=== PATIENT | male | born 1985 | race Caucasian/White ===

== ENCOUNTER 2017-04-20 17:14 | Emergency (ER) | payer MEDICARE, MEDICAID ==
[2017-04-20 18:03] LABS: APPEARANCE CLEAR (CLEAR); BILIRUBIN NEGATIVE (NEGATIVE); COLOR YELLOW (YELLOW); GLUCOSE NEGATIVE (NEGATIVE); KETONE NEGATIVE (NEGATIVE); LEUKOCYTE ESTERASE NEGATIVE (NEGATIVE); NITRITE NEGATIVE (NEGATIVE); PROTEIN NEGATIVE (NEGATIVE); UROBILINOGEN NORMAL (NORMAL)
== END 2017-04-20 18:54 | disposition home or self-care (01) ==
LOC: D.ER 17:14
PROVIDERS: Emergency Medicine
DX: R30.0 Dysuria (principal)

== ENCOUNTER 2018-08-03 09:26 | Inpatient (IN) | payer MEDICARE ==
[~2018-08-03] VITALS: Ht 182.9 cm; Wt 65.8 kg
[2018-08-03] MEDS ORDERED: AMBIEN10 MG PO (09:33)
[2018-08-03] MEDS ORDERED: PAXIL40 MG PO (09:33)
[2018-08-03] MEDS ORDERED: XANAX2 MG PO (09:33)
[2018-08-03] MEDS ORDERED: NORCO 10-325 TA1 TAB PO (09:33)
[2018-08-03 09:54] LABS: APPEARANCE CLOUDY (CLEAR); COLOR YELLOW (YELLOW); SPECIFIC GRAVITY 1.005 (1.005-1.020)
[2018-08-03 09:55] LABS: BILIRUBIN NEGATIVE (NEGATIVE); GLUCOSE NEGATIVE (NEGATIVE); KETONE LARGE mg/dL (NEGATIVE); NITRITE POSITIVE (NEGATIVE); PROTEIN TRACE mg/dL (NEGATIVE); UROBILINOGEN NORMAL (NORMAL)
[2018-08-03 09:57] LABS: BACTERIA MANY /hpf (NONE SEEN); EPITHELIAL CELLS OCC /hpf (0-5); MUCUS <1+ /lpf (NONE SEEN); WHITE CELLS - URINE 25-50 /hpf (0-5)
[2018-08-03 10:00] LABS: UDS - AMPHET POSITIVE QUAL (NEGATIVE); UDS - BARB NEGATIVE QUAL (NEGATIVE); UDS - BENZO POSITIVE QUAL (NEGATIVE); UDS - COCAINE NEGATIVE QUAL (NEGATIVE); UDS - OPIATE NEGATIVE QUAL (NEGATIVE); UDS - PCP NEGATIVE QUAL (NEGATIVE); UDS - THC POSITIVE QUAL (NEGATIVE)
--- NOTE | 2018-08-03 10:09 | NUR ---
XRAY HERE, RESP. HERE TO DRAW ABG. PORT FLUSHED WELL ON RED SITE, WHITE SITE, SLOW AND SLUGGISH, HEPARIN FLUSH IN PORT.
[2018-08-03 10:21] LABS: BASOPHILS 0.4 % (0-2); EOSINOPHILS 2.3 % (0-7); HEMATOCRIT 43.7 % (42.0-54.0); HEMOGLOBIN 14.4 g/dL (13.5-17.5); IMMATURE GRANULOCYTES 0.3 % (0-5); LYMPHOCYTES 27.4 % (15-50); MCH 28.3 pg (26.0-34.0); MCV 85.9 fL (80.0-100.0); MONOCYTES 9.5 % (2-11); NEUTROPHILS 60.1 % (40-80); PLATELET COUNT 306 10x3/uL (130-400); RBC 5.09 10x6/uL (4.20-6.10); RDW 15.4 % (11.5-14.5); WBC 7.7 10x3/uL (4.8-10.8)
[2018-08-03 10:41] LABS: ALBUMIN 3.8 g/dL (3.4-5.0); ALKALINE PHOSPHATASE 153 U/L (46-116); ALT (SGPT) 148 U/L (10-68); BILIRUBIN - TOTAL 0.67 mg/dL (0.2-1.3); CALC OSMOLALITY 279 mosm/kg (275-300); CALCIUM 9.3 mg/dL (8.5-10.1); CHLORIDE - SERUM 102 mmol/L (98-107); CREATININE - SERUM 0.7 mg/dL (0.6-1.3); GLUCOSE 89 mg/dL (74-106); POTASSIUM - SERUM 4.7 mmol/L (3.5-5.1); PROTEIN - SERUM 9.1 g/dL (6.4-8.2); SODIUM 140 mmol/L (136-145); UREA NITROGEN 17 mg/dL (7-18); eGFR NON AFRICAN AMERICAN > 90 mL/min (90-120)
[2018-08-03 10:50] LABS: CREATINE KINASE 47 UL (21-232); MAGNESIUM - SERUM 2.4 mg/dL (1.8-2.4)
[2018-08-03 10:51] LABS: TROPONIN-I < 0.017 ng/mL (0.000-0.060)
--- NOTE | 2018-08-03 11:05 | NUR ---
NS BOLUS STILL INFUSING ON DEPARTURE, VANCOMYCIN GOING IN . PT JERSON. WELL. ZOSYN FINISHED PRIOR TO VANC BEING STARTED.
[2018-08-03 11:27] LABS: APTT 32.7 SECONDS (22.8-39.4); INR 1.17 (0.85-1.17); PROTIME 14.3 SECONDS (11.6-15.0)
[2018-08-03 11:28] LABS: D-DIMER-QUANTITATIVE 1.12 ug/mLFEU (0.20-0.54)
[2018-08-03 13:29] VITALS: BP 127/82
--- NOTE | 2018-08-03 13:36 | MORECARE ---
CASE MANAGEMENT DISCHARGE SUMMARY PATIENT: TAMARA RAMIREZ UNIT: [id number] ADM DATE: 08/03/18 AGE: 32 : 84 SEX: M ROOM/BED: D.2222 AUTHOR: HILLARY PATTON PHYSICIAN: REFERRING PHYSICIAN: KONG MA MD DATE OF SERVICE: 08/03/18 Discharge Plan Patient Name: TAMARA RAMIREZ Facility: [facility]:[place] : 1985 Planned Disposition: Anticipated Discharge Date: 08/05/18 Discharge Date: Expected LOS: 2 Initial Reviewer: [email or web address] Initial Review Date: 08/03/2018 Generated: 08/03/18 2:36 pm DCPIA - Discharge Planning Initial Assessment Updated by [email or web address]: Paty Rdz on 08/03/18 1:36 pm * Is the patient Alert and Oriented? Yes * How many steps to enter\exit or inside your home? None * PCP Following up with Dr. Mcdowell from retirement stay. * Pharmacy [facility] in [place] * Preadmission Environment Home with Family * ADLs Independent * Equipment Wheelchair * List name and contact numbers for known caregivers / representatives who currently or will assist patient after discharge: Shelby Archibald - mother - [phone] Hermila Moa - sister - [phone] * Verbal permission to speak to the caregivers and representatives has been obtained from the patient. Yes * Community resources currently utilized Home Health * Please name any agencies selected above. [facility] * Additional services required to return to the preadmission environment? Yes * Can the patient safely return to the preadmission environment? No * Has this patient been hospitalized within the prior 30 days at any hospital? Yes Patient Name: TAMARA RAMIREZ Page 52274 at 1336 All edits/amendments must be made on the electronic document DICTATION DATE: 08/03/18 1336 BLOOD TESTER: SOLO 08/03/18 1336 RPT#: [id number] DC DATE: STATUS: ADM IN [place] [address] [place] [address] END OF REPORT
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
[2018-08-03 14:15] VITALS: BP 156/69
[2018-08-03 16:00] VITALS: BP 100/66
--- NOTE | 2018-08-03 19:00 | NUR ---
REPORT RECEIVED AND CARE OF PT ASSUMED. PT LYING IN MID HERNANDEZ'S POSITION WATCHING TV. RIGHT PICC LINE PATENT WITH LR INFUSING AT 125 ML / HR. DRESSING ON BUTTOCKS AND BLE CLEAN AND DRY. WILL MONITOR FOR NEEDS.
[2018-08-03 20:00] VITALS: BP 108/63
--- NOTE | 2018-08-03 20:51 | NUR ---
HS MEDICATIONS GIVEN TO INCLUDE AMBIEN AND XANAX PER REQUEST FOR SLEEP AND ANXIETY. WILL MONITOR CLOSLEY FOR NEEDS.
--- NOTE | 2018-08-03 22:59 | NUR ---
PROVIDED PT WITH ORAL CARE PRODUCTS.
--- NOTE | 2018-08-03 23:59 | NUR ---
GAVE NORCO 10 PO PER PRN ORDER PER PT REQUEST FOR PAIN AT LEVEL 8/10. WILL MONITOR FOR EFFECTIVENESS.
[2018-08-04] VITALS: BP 107/74
[2018-08-04 04:00] VITALS: BP 104/66
[2018-08-04 05:42] LABS: BASOPHILS 0.9 % (0-2); HEMATOCRIT 37.7 % (42.0-54.0); IMMATURE GRANULOCYTES 0.2 % (0-5); LYMPHOCYTES 41.2 % (15-50); MCH 27.4 pg (26.0-34.0); MCHC 31.8 g/dL (31.0-37.0); MCV 86.1 fL (80.0-100.0); MEAN PLATELET VOLUME 10.3 fL (7.4-10.4); NEUTROPHILS 38.7 % (40-80); PLATELET COUNT 264 10x3/uL (130-400); RBC 4.38 10x6/uL (4.20-6.10); RDW 15.2 % (11.5-14.5)
[2018-08-04 05:59] LABS: WBC 5.3 10x3/uL (4.8-10.8)
[2018-08-04 06:05] LABS: ALKALINE PHOSPHATASE 108 U/L (46-116); ALT (SGPT) 116 U/L (10-68); BILIRUBIN - TOTAL 0.45 mg/dL (0.2-1.3); CALC OSMOLALITY 277 mosm/kg (275-300); CALCIUM 7.8 mg/dL (8.5-10.1); CARBON DIOXIDE 28.3 mmol/L (21.0-32.0); CHLORIDE - SERUM 104 mmol/L (98-107); GLUCOSE 81 mg/dL (74-106); SODIUM 139 mmol/L (136-145); UREA NITROGEN 14 mg/dL (7-18)
[2018-08-04 06:07] LABS: ALBUMIN 2.7 g/dL (3.4-5.0); CREATININE - SERUM 0.9 mg/dL (0.6-1.3); POTASSIUM - SERUM 3.9 mmol/L (3.5-5.1); PROTEIN - SERUM 6.8 g/dL (6.4-8.2); eGFR NON AFRICAN AMERICAN > 90 mL/min (90-120)
--- NOTE | 2018-08-04 08:45 | NUR ---
PT RESTING IN BED WATCHING TV. RESP EVEN AND UNLABORED. REPORTS PAIN 9/10 THIS AM. VOICES HAVING "A TOOTHACHE", BUT ALSO VOICES CHRONIC BACK PAIN. PICC LINE INTACT TO RIGHT UPPER ARM WITH LR @ 125ML/HR INFUSING VIA PUMP. SITE WITHOUT REDNESS OR EDEMA. DENIES FURTHER NEEDS AT THIS TIME. CL WITHIN REACH. CONTINUE PLAN OF CARE.
[2018-08-04 09:03] VITALS: BP 100/76
[2018-08-04 12:30] VITALS: BP 110/75
[2018-08-04 15:15] VITALS: BMI 19.6
[2018-08-04 17:15] VITALS: BP 180/66
[2018-08-04 20:00] VITALS: BP 101/60
--- NOTE | 2018-08-04 23:44 | NUR ---
PATIENT SLEEPING. NO NEEDS AT THIS TIME
[2018-08-05 04:00] VITALS: BP 101/67
[2018-08-05 08:10] VITALS: BP 80/43
[2018-08-05 09:44] LABS: BASOPHILS 0.8 % (0-2); EOSINOPHILS 7.4 % (0-7); HEMATOCRIT 39.6 % (42.0-54.0); HEMOGLOBIN 12.4 g/dL (13.5-17.5); IMMATURE GRANULOCYTES 0.2 % (0-5); LYMPHOCYTES 44.2 % (15-50); MCH 27.5 pg (26.0-34.0); MCHC 31.3 g/dL (31.0-37.0); MCV 87.8 fL (80.0-100.0); NEUTROPHILS 37.4 % (40-80); PLATELET COUNT 246 10x3/uL (130-400); RBC 4.51 10x6/uL (4.20-6.10)
[2018-08-05 10:02] LABS: ALBUMIN 2.7 g/dL (3.4-5.0); ALKALINE PHOSPHATASE 104 U/L (46-116); ALT (SGPT) 112 U/L (10-68); CALC OSMOLALITY 277 mosm/kg (275-300); CALCIUM 8.2 mg/dL (8.5-10.1); CARBON DIOXIDE 33.9 mmol/L (21.0-32.0); CHLORIDE - SERUM 105 mmol/L (98-107); GLUCOSE 71 mg/dL (74-106); PROTEIN - SERUM 6.8 g/dL (6.4-8.2); SODIUM 141 mmol/L (136-145); UREA NITROGEN 11 mg/dL (7-18); VANCOMYCIN - TROUGH 11.6 ug/mL (10.0-20.0)
[2018-08-05 10:03] LABS: CREATININE - SERUM 0.6 mg/dL (0.6-1.3); POTASSIUM - SERUM 4.6 mmol/L (3.5-5.1); eGFR NON AFRICAN AMERICAN > 90 mL/min (90-120)
--- NOTE | 2018-08-05 10:11 | NUR ---
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 It measures 6cm x 7cm x 1cm x 3cm from 11-1 oclock. The wound bed is red and no odor is noted. 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 There is a 2cm x 1cm scab on the top of this foot. Left plantar great toe has a ruptured blister with small serous drainage. Currently the pressure injury of right buttock is being treated by daily dressing change using maxorb ag packed loosely on wound bed. Wounds on both feet are being painted with betadine and wrapped with kerlix. Recommend continuing with these treatments.
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
[2018-08-05 12:54] VITALS: BP 95/61
--- NOTE | 2018-08-05 13:47 | NUR ---
16 FR VELAZQUEZ CATHETER PLACED. 45 CC URINE OUTPUT UPON INSERTION. PATIENT TOLERATED WELL. URINE COLLECTED FOR CULTURE.
[2018-08-05 16:16] VITALS: BP 94/57
[2018-08-05 16:30] VITALS: Ht 182.9 cm; Wt 65.8 kg
--- NOTE | 2018-08-05 16:50 | NUR ---
SPOKE WITH KRISTA ASTUDILLO FROM [facility]. DR. TERI HUNTLEY, ORTHOPEDIC SURGEON, WAS PHYSICIAN FOLLOWING UP WITH PATIENT. IV VANCOMYCIN 1.5 GRAM Q12 WAS ORERED 07/30/18 WITH A STOP DATE OF 08/03/18. [facility] [phone].
--- NOTE | 2018-08-05 20:00 | NUR ---
PT A/OX4. SITTING UP ON BED. BREATHING EVEN AND UNLABORED. PT DENIES ANY NEEDS AT THIS TIME. DID ASK WHEN PAIN MEDS WERE DUE. WILL ADDRESS. QUESTIONS ASWERED. WILL FOLLOW POC.
[2018-08-06] VITALS: BP 100/50
[2018-08-06 04:00] VITALS: BP 98/50
[2018-08-06 05:39] LABS: BASOPHILS 0.8 % (0-2); EOSINOPHILS 7.1 % (0-7); HEMATOCRIT 38.6 % (42.0-54.0); HEMOGLOBIN 12.4 g/dL (13.5-17.5); LYMPHOCYTES 48.4 % (15-50); MCH 27.6 pg (26.0-34.0); MCHC 32.1 g/dL (31.0-37.0); MEAN PLATELET VOLUME 10.6 fL (7.4-10.4); MONOCYTES 9.1 % (2-11); NEUTROPHILS 34.6 % (40-80); PLATELET COUNT 292 10x3/uL (130-400); RBC 4.49 10x6/uL (4.20-6.10); RDW 15.2 % (11.5-14.5)
[2018-08-06 06:26] LABS: ALBUMIN 2.6 g/dL (3.4-5.0); ALKALINE PHOSPHATASE 100 U/L (46-116); ALT (SGPT) 109 U/L (10-68); BILIRUBIN - TOTAL 0.16 mg/dL (0.2-1.3); CALC OSMOLALITY 281 mosm/kg (275-300); CALCIUM 8.1 mg/dL (8.5-10.1); CARBON DIOXIDE 29.9 mmol/L (21.0-32.0); CHLORIDE - SERUM 105 mmol/L (98-107); CREATININE - SERUM 0.6 mg/dL (0.6-1.3); GLUCOSE 82 mg/dL (74-106); POTASSIUM - SERUM 4.3 mmol/L (3.5-5.1); PROTEIN - SERUM 6.6 g/dL (6.4-8.2); SODIUM 142 mmol/L (136-145); UREA NITROGEN 12 mg/dL (7-18); eGFR NON AFRICAN AMERICAN > 90 mL/min (90-120)
[2018-08-06 07:10] LABS: HEPATITIS C ANTIBODY >11.0 S/CO RAT (0.0-0.9)
--- NOTE | 2018-08-06 07:35 | NUR ---
PT RESTING IN BED EYES OPEN. PT C/O PAIN, RATED 7/10. C/O ANXIETY ALSO. GAVE NORCO AND XANAX FOR PAIN AND ANXIETY. PT ALERT AND ORIENTED. NO S/S OF ACUTE DISTRESS NOTED. PT PARALYZED BLE. DRESSING TO BILATERAL FEET, CDI. STAGE 3 PRESSURE ULCER TO COCCYX. DRESSING CDI. RIGHT FOOT TOES AMPUTATED. PT USES WC TO AMBULATE. PT ON 1ST OVERLAY MATTRESS. RIGHT PICC, SITE PATENT WITHOUT REDNESS OR SWELLING. LR INFUSING @ 75ML/HR. PT HAS VELAZQUEZ. REFUSED SCDS, RECEIVES LOVENOX. PT DENIES ANYTHING FURTHER AT THIS TIME. CALL LIGHT IN REACH. WILL CONTINUE TO MONITOR.
[2018-08-06 09:17] VITALS: BP 92/54
--- NOTE | 2018-08-06 11:30 | NUR ---
PT HERE FOR OSTEOMYOLITIS FOR THIS VISIT PT DENIES NEEDS AT THIS TIME WILL CONTINUE TO MONITOR
--- NOTE | 2018-08-06 12:15 | NUR ---
PT C/O PAIN, RATED 9/10. GAVE NORCO FOR PAIN. PT DENIES ANYTHING FURTHER AT THIS TIME. CALL LIGHT IN REACH. WILL CONTINUE TO MONITOR.
[2018-08-06 12:44] VITALS: BP 90/52
--- NOTE | 2018-08-06 14:43 | NUR ---
PT C/O FEELING ANXIOUS, GAVE XANAX FOR ANXIETY PER PHYSICIAN'S ORDERS. NO S/S OF ACUTE DISTRESS. PT DENIES ANYTHING FURTHER AT THIS TIME. CALL LIGHT IN REACH. WILL CONTINUE TO MONITOR.
--- NOTE | 2018-08-06 16:01 | NUR ---
PT BP TRENDING DOWN, CALLED DR. FREY. ORDERS ON LR CHANGED TO 125ML/HR FROM 75ML/HR. NO C/O PAIN. NO S/S OF ACUTE DISTRESS NOTED. PT DENIES ANYTHING FURTHER AT THIS TIME. CALL LIGHT IN REACH. WILL CONTINUE TO MONITOR.
[2018-08-06 16:19] VITALS: BP 94/45
--- NOTE | 2018-08-06 17:36 | NUR ---
PT C/O PAIN, 04/22. GAVE NORCO FOR PAIN. PT DENIES ANYTHING FURTHER AT THIS TIME. CALL LIGHT IN REACH. WILL CONTINUE TO MONITOR.
--- NOTE | 2018-08-06 20:00 | NUR ---
ASSESSMENT PER FLOWSHEET. IV PATENT RT PICC LINE OF LR AT 125CC'S/HR SITE CLEAR. VEALZQUEZ TO BEDSIDE DRAINAGE. DRSG TO BILAT. FEET. C/D/I. LEFT FOOT ONE TOE MISSING AND RIGHT FOOT ALL TOES MISSING FROM AMPUTATION. STAGE 4 PRESSURE WOUND TO COCCYX DRSG C/D/I. DUE TO BE CHANGED TOMORROW.
[2018-08-06 20:22] VITALS: BP 94/52
--- NOTE | 2018-08-06 20:30 | NUR ---
REQUESTING SLEEPING PILL AND NERVE PILL. AMBIEN 10 MG PO GIVEN FOR SLEEP AND XANAX 2MG PO GIVEN FOR ANXIETY/NERVES.
--- NOTE | 2018-08-06 21:15 | NUR ---
C/O PAIN (CHRONIC) IN BACK AREA. NORCO TAB ONE PO GIVEN FOR PAIN IN BACK.
--- NOTE | 2018-08-07 | NUR ---
EYES CLOSED RESPIRATIONS WITH EASE AND UNLABORED.
--- NOTE | 2018-08-07 03:00 | NUR ---
TURNS SELF IN BED DENIES NEEDS.
[2018-08-07 04:20] LABS: EOSINOPHILS 6.3 % (0-7); HEMATOCRIT 40.6 % (42.0-54.0); HEMOGLOBIN 13.1 g/dL (13.5-17.5); IMMATURE GRANULOCYTES 0.2 % (0-5); LYMPHOCYTES 45.3 % (15-50); MCH 27.8 pg (26.0-34.0); MCHC 32.3 g/dL (31.0-37.0); MEAN PLATELET VOLUME 10.6 fL (7.4-10.4); MONOCYTES 9.3 % (2-11); NEUTROPHILS 37.9 % (40-80); PLATELET COUNT 312 10x3/uL (130-400); RBC 4.72 10x6/uL (4.20-6.10); RDW 14.8 % (11.5-14.5); WBC 5.8 10x3/uL (4.8-10.8)
[2018-08-07 04:36] LABS: ALBUMIN 2.6 g/dL (3.4-5.0); ALKALINE PHOSPHATASE 100 U/L (46-116); ALT (SGPT) 108 U/L (10-68); BILIRUBIN - TOTAL 0.18 mg/dL (0.2-1.3); CALC OSMOLALITY 280 mosm/kg (275-300); CALCIUM 8.2 mg/dL (8.5-10.1); CARBON DIOXIDE 30.8 mmol/L (21.0-32.0); CHLORIDE - SERUM 104 mmol/L (98-107); CREATININE - SERUM 0.7 mg/dL (0.6-1.3); GLUCOSE 86 mg/dL (74-106); PROTEIN - SERUM 6.7 g/dL (6.4-8.2); SODIUM 141 mmol/L (136-145); UREA NITROGEN 15 mg/dL (7-18); eGFR NON AFRICAN AMERICAN > 90 mL/min (90-120)
--- NOTE | 2018-08-07 06:24 | NUR ---
RESTING QUIETLY RESPIRATIONS WITH EASE AND UNLABORED.
--- NOTE | 2018-08-07 07:35 | NUR ---
PT RESTING IN BED EYES CLOSED. NO C/O PAIN. NO S/S OF DISTRESS NOTED. PICC TO RIGHT UPPER ARM, SITE PATENT AND WITHOUT REDNESS OR SWELLING. VELAZQUEZ PRESENT. DRESSING TO BLE, FEET. STAGE 4 ON COCCYX, DRESSING CHANGES TODAY. LR INFUSING AT 125. PT DENIES ANYTHING FURTHER AT THIS TIME. CALL LIGHT IN REACH. WILL CONTINUE TO MONITOR.
[2018-08-07 08:30] VITALS: BP 97/63
--- NOTE | 2018-08-07 14:51 | NUR ---
NUTRITION F/U PT TOLERATING AHA DIET, BOOST WITH MEALS. 75% INTAKE LUNCH TODAY. WILL CONTINUE TO PROVIDE DIET, BOOST. MONITOR INTAKE. RD FOLLOWING
--- NOTE | 2018-08-07 16:05 | MORECARE ---
CASE MANAGEMENT DISCHARGE SUMMARY PATIENT: TAMARA RAMIREZ UNIT: [id number] ADM DATE: 08/03/18 AGE: 32 : 84 SEX: M ROOM/BED: D.2222 AUTHOR: POOJA,DOC PHYSICIAN: REFERRING PHYSICIAN: KONG MA MD DATE OF SERVICE: 08/07/18 Discharge Plan Patient Name: TAMARA RAMIREZ Facility: [facility]:[place] : 1985 Planned Disposition: Anticipated Discharge Date: 08/05/18 Discharge Date: Expected LOS: 2 Initial Reviewer: [email or web address] Initial Review Date: 08/03/2018 Generated: 08/07/18 5:05 pm Comments DCP- Discharge Planning Updated by [email or web address]: Carol Thaojohn on 08/07/18 3:[address] [facility] denied admission. I spoke with the patient he would like referred to [place]. I called [facility] and spoke with Lachelle and clinical sent. CM will continue to follow and assist with discharge planning/needs. DCP- Discharge Planning Updated by [email or web address]: Carol Miley on 08/05/18 10:[address] [place] for [facility]. CM will continue to follow and assist with discharge planning/needs. DCP- Discharge Planning Updated by [email or web address]: Carol Trent on 08/05/18 10:[address] Met with patient, he is wanting to go to a skilled therapy in [place] prior to going home for wound care and IV antibiotic therapy. States his mother is on Meth and cannot return to her home. I called [facility] and spoke with Jacqueline, she states they do not accept anyone under age 55. I've tried to call clinical coordinator for [facility] (2nd choice) and [facility] (3rd choice) with no answer. Will attempt again after the holidays. CM will continue to follow and assist with discharge planning/needs. DCP- Discharge Planning Updated by [email or web address]: Paty Rdz on 08/03/18 12:[address] Patient Name: TAMARA RAMIREZ Admission Status: ER Accout number: [id number] Admission Date: 08-03-2018 : 1985 Admission Diagnosis: Attending: KONG MA Current LOS: 1 Anticipated DC Date: 08-05-2018 Planned Disposition: Primary Insurance: MEDICARE A & B Discharge Planning Comments: CM met with patient to complete initial dc planning assessment. CM educated patient on the CM role and verbal consent given by patient to complete assessment. Patient reports he was living with his mother and her boyfriend unitl they got into a fight and he kicked them out. Prior to arrival at hospital today he was at a friends house. He reports he was recently in a [facility] home in [place] but was released because he was doing to well with therapy to stay. Not sure if he will qualify for Skilled at time of discharge. He is currently on IV antibiotics due to osteomyelitis. He had [facility] services to assist with IV medication and wound care. Patient reports he is not sure where he is going to go at dc and stated he is needing to apply for public housing. CM discussed residential medicaid and applying to live at the facility but he stated he was not interested in that once CM explained they would take his SSI check and give him a set amount each month. He plans to work on dc place while he is in the hospital. He stated his mom is staying with a friend and he cant stay with her. Patient is wheelchair bound and non ambulatory. He has dressing present to his left foot. CM will continue to follow and will assist as needed with dc plans/needs. Scientific Research Manager: Paty Rdz RN, [facility] DCPIA - Discharge Planning Initial Assessment Updated by [email or web address]: Paty Rdz on 08/03/18 1:36 pm * Is the patient Alert and Oriented? Yes * How many steps to enter\exit or inside your home? None * PCP Following up with Dr. Mcdowell from fpc stay. * Pharmacy [facility] in [place] * Preadmission Environment Home with Family * ADLs Independent * Equipment Wheelchair * List name and contact numbers for known caregivers / representatives who currently or will assist patient after discharge: Shelby Archibald - mother - [phone] Hermila Mao - sister - [phone] * Verbal permission to speak to the caregivers and representatives has been obtained from the patient. Yes * Community resources currently utilized Home Health * Please name any agencies selected above. [facility] * Additional services required to return to the preadmission environment? Yes * Can the patient safely return to the preadmission environment? No * Has this patient been hospitalized within the prior 30 days at any hospital? Yes External Providers External Provider: [facility] Next Contact Date: Service Request Date: Service Type: Resolution: Reviewer: Comments: Last DP export: 08/05/18 10:51 Patient Name: TAMARA RAMIREZ Page 54639 at 1605 All edits/amendments must be made on the electronic document DICTATION DATE: 08/07/18 1605 EMBEDDER: SOLO 08/07/18 1605 RPT#: [id number] DC DATE: STATUS: ADM IN [facility] [address] [place] [address] END OF REPORT
[2018-08-07 16:14] VITALS: BP 96/69
--- NOTE | 2018-08-07 16:15 | MORECARE ---
CASE MANAGEMENT DISCHARGE SUMMARY PATIENT: TAMARA RAMIREZ UNIT: [id number] ADM DATE: 08/03/18 AGE: 32 : 83 SEX: M ROOM/BED: D.2222 AUTHOR: POOJA,DOC PHYSICIAN: REFERRING PHYSICIAN: KONG MA MD DATE OF SERVICE: 08/07/18 Discharge Plan Patient Name: TAMARA RAMIREZ Facility: [facility]:[place] : 1985 Planned Disposition: Anticipated Discharge Date: 08/05/18 Discharge Date: Expected LOS: 2 Initial Reviewer: [email or web address] Initial Review Date: 08/03/2018 Generated: 08/07/18 5:15 pm Comments DCP- Discharge Planning Updated by [email or web address]: Carol Thaojohn on 08/07/18 3:[address] [facility] denied admission. I spoke with the patient he would like referred to [place]. I called [facility] and spoke with Lachelle and clinical sent. CM will continue to follow and assist with discharge planning/needs. DCP- Discharge Planning Updated by [email or web address]: Carol Miley on 08/05/18 10:[address] Clinical [place] for [facility]. CM will continue to follow and assist with discharge planning/needs. DCP- Discharge Planning Updated by [id number]: Carol Trent on 08/05/18 10:[address] Met with patient, he is wanting to go to a skilled therapy in [place] prior to going home for wound care and IV antibiotic therapy. States his mother is on Meth and cannot return to her home. I called [facility] and spoke with Jacqueline, she states they do not accept anyone under age 55. I've tried to call clinical coordinator for [facility] (2nd choice) and [facility] (3rd choice) with no answer. Will attempt again after the holidays. CM will continue to follow and assist with discharge planning/needs. DCP- Discharge Planning Updated by [email or web address]: Paty Rdz on 08/03/18 12:[address] Patient Name: TAMARA RAMIREZ Admission Status: ER Accout number: [id number] Admission Date: 08-03-2018 : 1985 Admission Diagnosis: Attending: KONG MA Current LOS: 1 Anticipated DC Date: 08-05-2018 Planned Disposition: Primary Insurance: MEDICARE A & B Discharge Planning Comments: CM met with patient to complete initial dc planning assessment. CM educated patient on the CM role and verbal consent given by patient to complete assessment. Patient reports he was living with his mother and her boyfriend unitl they got into a fight and he kicked them out. Prior to arrival at hospital today he was at a friends house. He reports he was recently in a senior living home in [place] but was released because he was doing to well with therapy to stay. Not sure if he will qualify for Skilled at time of discharge. He is currently on IV antibiotics due to osteomyelitis. He had [facility] services to assist with IV medication and wound care. Patient reports he is not sure where he is going to go at dc and stated he is needing to apply for public housing. CM discussed senior care medicaid and applying to live at the facility but he stated he was not interested in that once CM explained they would take his SSI check and give him a set amount each month. He plans to work on dc place while he is in the hospital. He stated his mom is staying with a friend and he cant stay with her. Patient is wheelchair bound and non ambulatory. He has dressing present to his left foot. CM will continue to follow and will assist as needed with dc plans/needs. Truck Packer: Paty Rdz RN, [facility] DCPIA - Discharge Planning Initial Assessment Updated by [email or web address]: Paty Rdz on 08/03/18 1:36 pm * Is the patient Alert and Oriented? Yes * How many steps to enter\exit or inside your home? None * PCP Following up with Dr. Mcdowell from half-way stay. * Pharmacy [facility] in [place] * Preadmission Environment Home with Family * ADLs Independent * Equipment Wheelchair * List name and contact numbers for known caregivers / representatives who currently or will assist patient after discharge: Shelby Archibald - mother - [phone] Hermila Mao - sister - [phone] * Verbal permission to speak to the caregivers and representatives has been obtained from the patient. Yes * Community resources currently utilized Home Health * Please name any agencies selected above. [facility] * Additional services required to return to the preadmission environment? Yes * Can the patient safely return to the preadmission environment? No * Has this patient been hospitalized within the prior 30 days at any hospital? Yes External Providers External Provider: [facility] Next Contact Date: Service Request Date: Service Type: Resolution: Reviewer: Comments: Last DP export: 08/05/18 10:51 Patient Name: TAMARA RAMIREZ Page [id number] at 1615 All edits/amendments must be made on the electronic document DICTATION DATE: 08/07/18 1615 MOTION PICTURE OPERATOR: SOLO 08/07/18 1615 RPT#: [id number] DC DATE: STATUS: ADM IN [facility] [address] [place] [address] END OF REPORT
--- NOTE | 2018-08-07 18:06 | NUR ---
PT RESTING IN BED, EYES OPEN. TOOK SHOWER TODAY. NO C/O PAIN. NO S/S OF DISTRESS NOTED. DRESSINGS TO BILATERAL FEET CHANGED. DRESSING TO RIGHT BUTTOCK CHANGED WELL. PT DENIES ANYTHING FURTHER AT THIS TIME. CALL LIGHT IN REACH. WILL CONTINUE TO MONITOR.
--- NOTE | 2018-08-07 20:00 | NUR ---
ASSESSMENT PER FLOWSHEET. DRESSING TO COCCYX C/D/I. DRSG TO BLE X2 C/D/I. IV PATENT PRIETO PICC LINE WITH LR INFUSING AT 125CC'S/HR VELAZQUEZ TO BSD WITH YELLOW URINE.
--- NOTE | 2018-08-07 21:07 | NUR ---
C/O ANXIETY AND PAIN IN BACK. XANAX 2MG PO GIVEN FOR ANXIETY AND NORCO 10 TAB ONE PO GIVEN FOR BACK PAIN. PATIENT LYING IN BED EATING SNACKS. PT TURNS SELF. SR UP X2 CALL LIGHT WITHIN REACH.
[2018-08-07 21:34] VITALS: BP 106/80
--- NOTE | 2018-08-08 | NUR ---
EYES CLOSED RESPIRATIONS WITH EASE AND UNLABORED.
--- NOTE | 2018-08-08 02:12 | NUR ---
AWAKE C/O PAIN IN BACK AND ANXIETY. NORCO 10 TAB ONE PO GIVEN FOR PAIN CONTROL. XANAX 2MG PO GIVEN FOR ANXIETY.
[2018-08-08 05:10] VITALS: BP 94/57
[2018-08-08 05:27] LABS: BASOPHILS 0.6 % (0-2); EOSINOPHILS 6.7 % (0-7); HEMATOCRIT 38.6 % (42.0-54.0); HEMOGLOBIN 12.6 g/dL (13.5-17.5); IMMATURE GRANULOCYTES 0.3 % (0-5); LYMPHOCYTES 37.6 % (15-50); MCH 27.8 pg (26.0-34.0); MCHC 32.6 g/dL (31.0-37.0); MCV 85.2 fL (80.0-100.0); MEAN PLATELET VOLUME 10.4 fL (7.4-10.4); NEUTROPHILS 45.8 % (40-80); PLATELET COUNT 295 10x3/uL (130-400); RBC 4.53 10x6/uL (4.20-6.10); RDW 14.8 % (11.5-14.5); WBC 6.4 10x3/uL (4.8-10.8)
--- NOTE | 2018-08-08 05:40 | NUR ---
EYES CLOSED RESPIRATIONS WITH EASE AND UNLABORED.
[2018-08-08 05:57] LABS: ALBUMIN 2.5 g/dL (3.4-5.0); ALKALINE PHOSPHATASE 98 U/L (46-116); ALT (SGPT) 103 U/L (10-68); BILIRUBIN - TOTAL 0.22 mg/dL (0.2-1.3); CALC OSMOLALITY 280 mosm/kg (275-300); CALCIUM 7.9 mg/dL (8.5-10.1); CARBON DIOXIDE 28.4 mmol/L (21.0-32.0); CHLORIDE - SERUM 102 mmol/L (98-107); CREATININE - SERUM 0.7 mg/dL (0.6-1.3); GLUCOSE 113 mg/dL (74-106); POTASSIUM - SERUM 3.6 mmol/L (3.5-5.1); PROTEIN - SERUM 6.3 g/dL (6.4-8.2); SODIUM 139 mmol/L (136-145); UREA NITROGEN 17 mg/dL (7-18); eGFR NON AFRICAN AMERICAN > 90 mL/min (90-120)
[2018-08-08 08:48] VITALS: BP 100/57
[2018-08-08 12:45] VITALS: BP 106/56
--- NOTE | 2018-08-08 13:25 | MORECARE ---
CASE MANAGEMENT DISCHARGE SUMMARY PATIENT: TAMARA RAMIREZ UNIT: [id number] ADM DATE: 08/03/18 AGE: 32 : 84 SEX: M ROOM/BED: D.2222 AUTHOR: POOJA,DOC PHYSICIAN: REFERRING PHYSICIAN: KONG MA MD DATE OF SERVICE: 08/08/18 Discharge Plan Patient Name: TAMARA RAMIREZ Facility: [facility]:[place] : 1985 Planned Disposition: Anticipated Discharge Date: 08/05/18 Discharge Date: Expected LOS: 2 Initial Reviewer: [email or web address] Initial Review Date: 08/03/2018 Generated: 08/08/18 2:24 pm Comments DCP- Discharge Planning Updated by [email or web address]: Carol Miley on 08/07/18 3:[address] [facility] denied admission. I spoke with the patient he would like referred to [facility]. I called [facility] and spoke with Lachelle and clinical sent. CM will continue to follow and assist with discharge planning/needs. DCP- Discharge Planning Updated by [email or web address]: Carol Miley on 08/05/18 10:[address] Clinical [place] for [facility]. CM will continue to follow and assist with discharge planning/needs. DCP- Discharge Planning Updated by [email or web address]: Carol Trent on 08/05/18 10:[address] Met with patient, he is wanting to go to a skilled therapy in [place] prior to going home for wound care and IV antibiotic therapy. States his mother is on Meth and cannot return to her home. I called [facility] and spoke with Jacqueline, she states they do not accept anyone under age 55. I've tried to call clinical coordinator for [facility] (2nd choice) and [facility] (3rd choice) with no answer. Will attempt again after the holidays. CM will continue to follow and assist with discharge planning/needs. DCP- Discharge Planning Updated by [email or web address]: Paty Rdz on 08/03/18 12:[address] Patient Name: TAMARA RAMIREZ Admission Status: ER Accout number: [id number] Admission Date: 08-03-2018 : 1985 Admission Diagnosis: Attending: KONG MA Current LOS: 1 Anticipated DC Date: 08-05-2018 Planned Disposition: Primary Insurance: MEDICARE A & B Discharge Planning Comments: CM met with patient to complete initial dc planning assessment. CM educated patient on the CM role and verbal consent given by patient to complete assessment. Patient reports he was living with his mother and her boyfriend unitl they got into a fight and he kicked them out. Prior to arrival at hospital today he was at a friends house. He reports he was recently in a jail home in [place] but was released because he was doing to well with therapy to stay. Not sure if he will qualify for Skilled at time of discharge. He is currently on IV antibiotics due to osteomyelitis. He had [facility] services to assist with IV medication and wound care. Patient reports he is not sure where he is going to go at dc and stated he is needing to apply for public housing. CM discussed detention medicaid and applying to live at the facility but he stated he was not interested in that once CM explained they would take his SSI check and give him a set amount each month. He plans to work on dc place while he is in the hospital. He stated his mom is staying with a friend and he cant stay with her. Patient is wheelchair bound and non ambulatory. He has dressing present to his left foot. CM will continue to follow and will assist as needed with dc plans/needs. [employer] Crewmember: Paty Rdz RN, [facility] DCPIA - Discharge Planning Initial Assessment Updated by [email or web address]: Paty Rdz on 08/03/18 1:36 pm * Is the patient Alert and Oriented? Yes * How many steps to enter\exit or inside your home? None * PCP Following up with Dr. Mcdowell from intermediate stay. * Pharmacy [facility] in [place] * Preadmission Environment Home with Family * ADLs Independent * Equipment Wheelchair * List name and contact numbers for known caregivers / representatives who currently or will assist patient after discharge: Shelby Archibald - mother - [phone] Hermila Mao - sister - [phone] * Verbal permission to speak to the caregivers and representatives has been obtained from the patient. Yes * Community resources currently utilized Home Health * Please name any agencies selected above. [facility] * Additional services required to return to the preadmission environment? Yes * Can the patient safely return to the preadmission environment? No * Has this patient been hospitalized within the prior 30 days at any hospital? Yes External Providers External Provider: [facility] Next Contact Date: Service Request Date: Service Type: Resolution: Reviewer: Comments: External Provider: [facility] Next Contact Date: Service Request Date: Service Type: Resolution: Reviewer: Comments: Last DP export: 08/07/18 3:15 Patient Name: TAMARA RAMIREZ Page [id number] at 1325 All edits/amendments must be made on the electronic document DICTATION DATE: 08/08/181323 WELDING MACHINE OPERATOR ELECTRON BEAM: SOLO 08/08/18 1324 RPT#: [id number] DC DATE: STATUS: ADM IN [facility] [address] [place] [address] END OF REPORT
--- NOTE | 2018-08-08 13:56 | MORECARE ---
CASE MANAGEMENT DISCHARGE SUMMARY PATIENT: TAMARA RAMIREZ UNIT: [id number] ADM DATE: 08/03/18 AGE: 32 : [birth year] SEX: M ROOM/BED: D.2222 AUTHOR: POOJA,DOC PHYSICIAN: REFERRING PHYSICIAN: KONG MA MD DATE OF SERVICE: 08/08/18 Discharge Plan Patient Name: TAMARA RAMIREZ Facility: [facility]:[place] : 1985 Planned Disposition: Anticipated Discharge Date: 08/05/18 Discharge Date: Expected LOS: 2 Initial Reviewer: [email or web address] Initial Review Date: 08/03/2018 Generated: 08/08/18 2:56 pm Comments DCP- Discharge Planning Updated by [email or web address]: Carol Trent on 08/08/18 12:[address] Lachelle from [facility] called and has turned down admission. I spoke with Carol at [facility] and he was denied due to positive drug screen. I sent referral to [facility] and spoke to Remy (medical staff services coordinator) and she is going to talk with the senior linux administrator there prior to authorization due to positive drug screen. I called [phone] to reach Rajinder with [facility] with no answer. I called Da with [facility], he declines. Da states they have too many steps and he would not be ambulatory enough for [facility]. I gave the patient a list of homeless shelters as well as [facility]. He states "I do not have a drug problem." CM will continue to follow and assist with discharge planning/needs. DCP- Discharge Planning Updated by [email or web address]: Carol Trent on 08/07/18 3:[address] [facility] have denied admission. I spoke with the patient he would like referred to [facility]. I called [facility] and spoke with Lachelle and clinical sent. CM will continue to follow and assist with discharge planning/needs. DCP- Discharge Planning Updated by [email or web address]: Carol Trent on 08/05/18 10:[address] [place] for [facility] and [facility]. CM will continue to follow and assist with discharge planning/needs. DCP- Discharge Planning Updated by [email or web address]: Carol Trent on 08/05/18 10:[address] Met with patient, he is wanting to go to a skilled therapy in [place] prior to going home for wound care and IV antibiotic therapy. States his mother is on Meth and cannot return to her home. I called [facility] and spoke with Jacqueline, she states they do not accept anyone under age 55. I've tried to call clinical coordinator for [facility] (2nd choice) and [facility] (3rd choice) with no answer. Will attempt again after the holidays. CM will continue to follow and assist with discharge planning/needs. DCP- Discharge Planning Updated by [email or web address]: Paty Rdz on 08/03/18 12:[address] Patient Name: TAMARA RAMIREZ Admission Status: ER Accout number: [id number] Admission Date: 08-03-2018 : 1985 Admission Diagnosis: Attending: KONG MA Current LOS: 1 Anticipated DC Date: 08-05-2018 Planned Disposition: Primary Insurance: MEDICARE A & B Discharge Planning Comments: CM met with patient to complete initial dc planning assessment. CM educated patient on the CM role and verbal consent given by patient to complete assessment. Patient reports he was living with his mother and her boyfriend unitl they got into a fight and he kicked them out. Prior to arrival at hospital today he was at a friends house. He reports he was recently in a custodial home in [place] but was released because he was doing to well with therapy to stay. Not sure if he will qualify for Skilled at time of discharge. He is currently on IV antibiotics due to osteomyelitis. He had [facility] services to assist with IV medication and wound care. Patient reports he is not sure where [place] going to go [place] and stated he is needing to apply for public housing. CM discussed group home medicaid and applying to live at the facility but he stated he was not interested in that once CM explained they would take his SSI check and give him a set amount each month. He plans to work on dc place while he is in the hospital. He stated his mom is staying with a friend and he cant stay with her. Patient is wheelchair bound and non ambulatory. He has dressing present to his left foot. CM will continue to follow and will assist as needed with dc plans/needs. Physically Impaired Teacher: Paty Rdz RN, [facility] DCPIA - Discharge Planning Initial Assessment Updated by [email or web address]: Paty Rdz on 08/03/18 1:36 pm * Is the patient Alert and Oriented? Yes * How many steps to enter\\exit or inside your home? None * PCP Following up with Dr. Mcdowell from fdc stay. * Pharmacy [facility] in [place] * Preadmission Environment Home with Family * ADLs Independent * Equipment Wheelchair * List name and contact numbers for known caregivers / representatives who currently or will assist patient after discharge: Shelby Archibald - mother - [phone] Hermila Mao - sister - [phone] * Verbal permission to speak to the caregivers and representatives has been obtained from the patient. Yes * Community resources currently utilized Home Health * Please name any agencies selected above. [facility] * Additional services required to return to the preadmission environment? Yes * Can the patient safely return to the preadmission environment? No * Has this patient been hospitalized within the prior 30 days at any hospital? Yes Last DP export: 08/08/18 12:24 Patient Name: TAMARA RAMIREZ Page [id number] at 1356 All edits/amendments must be made on the electronic document DICTATION DATE: 08/08/18 1356 LAYOUT OPERATOR: SOLO 08/08/18 1356 RPT#: [id number] DC DATE: STATUS: ADM IN [facility] [address] [place] [address] END OF REPORT
--- NOTE | 2018-08-08 14:57 | CN ---
PATIENT NAME:TAMARA RAMIREZ MEDICAL RECORD: [id number] : 83 LOCATION:D.MS [id number] ADMIT DATE: 08/03/18 ACCOUNT: [id number] CONSULTING PHYSICIAN: KORTNEY NEWELL MD REFERRING PHYSICIAN: KONG MA MD DATE OF CONSULTATION: 08/05/2018 CARDIOLOGY CONSULTATION DIAGNOSES: 1. Peripheral vascular disease. 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 3. Nonhealing ulcer of lower extremity feet. 4. Paraplegic. HISTORY OF PRESENT ILLNESS: This is a young gentleman who presents with multiple medical problems, included in that; however, are nonhealing ulcers on his feet bilaterally. Arterial Doppler suggested peripheral vascular disease. I am now asked for possible revascularization. PHYSICAL EXAMINATION: GENERAL APPEARANCE: Well-nourished, well-developed, appears stated age. Level of distress, comfortable. PSYCHIATRIC: Mental status, alert, normal affect. Orientation, oriented to time, place and person. EYES: Lids and conjunctiva, noninjected. No discharge, no pallor. ENT: Lips, teeth, gums, normal dentition. Oropharynx, no cyanosis, no pallor. NECK: Carotid arteries, bilateral normal upstroke, no bruits, no thrills. JUGULAR VEINS: No jugular venous pressure or distention. CERVICAL LYMPH NODES: Nontender, nonenlarged. THYROID: Not enlarged. Nontender. No nodules. LUNGS: Respiratory effort, unlabored. CHEST: Normal curvature. No thoracic deformity. No chest wall tenderness. Percussion, resonant. Auscultation, clear. No wheezes, no rales, no rhonchi. CARDIOVASCULAR: Precordial exam, nondisplaced. No heaves or pericardial thrills. Rate and rhythm, regular. Heart sounds, normal S1, normal S2. No S3, no gallop, no rub. Systolic murmur, not heard. Diastolic murmur, not heard. EXTREMITIES: No cyanosis, no edema. Peripheral pulses, full and equal in all extremities, except as noted. No bruits appreciated. ABDOMEN: Soft, nondistended. Normal aorta. No bruit. Nontender. No masses. Liver, nontender, no hepatomegaly. Spleen, nontender, no splenomegaly. MUSCULOSKELETAL: No joint tenderness. No joint swelling. No erythema. NEUROLOGICAL: Normal gait, normal strength, normal tone. SKIN: Warm and dry. OVERALL IMPRESSION: Possible peripheral vascular disease of lower extremities. We will get CT angiography of the lower extremities, review this and comment on the possibility of revascularization. TRANSINT:[id number] Voice Confirmation ID: [id number] DOCUMENT ID: [id number] CONSULT REPORT [id number] TAMARA RAMIREZ JEFFREY MD at 1457 CC: [id number] DICTATION DATE: 08/05/1859 TOLL COLLECTOR SUPERVISOR: 08/05/18 1010 ADM IN [facility] [address] [place] [address]
[2018-08-08 16:50] VITALS: BP 106/49; BP 146/69
[2018-08-08 21:11] VITALS: BP 105/58
--- NOTE | 2018-08-09 04:20 | NUR ---
RESTING QUIETLY DRSG TO BOTH FEET C/D/I DRSG TO COCCYX PORESURE SORE C/D/I. PICC LINE IN PLACE WITH LR AT 75CC'S/HR ASSESSMENT PER FLOWSHEET.
[2018-08-09 04:34] VITALS: BP 91/53
[2018-08-09 07:14] LABS: BASOPHILS 0.8 % (0-2); HEMATOCRIT 39.8 % (42.0-54.0); HEMOGLOBIN 12.8 g/dL (13.5-17.5); IMMATURE GRANULOCYTES 0.2 % (0-5); LYMPHOCYTES 40.2 % (15-50); MCH 27.9 pg (26.0-34.0); MCHC 32.2 g/dL (31.0-37.0); MCV 86.9 fL (80.0-100.0); MEAN PLATELET VOLUME 9.9 fL (7.4-10.4); MONOCYTES 9.9 % (2-11); NEUTROPHILS 41.9 % (40-80); PLATELET COUNT 256 10x3/uL (130-400); RBC 4.58 10x6/uL (4.20-6.10); WBC 5.1 10x3/uL (4.8-10.8)
[2018-08-09 07:31] LABS: ALBUMIN 2.7 g/dL (3.4-5.0); ALKALINE PHOSPHATASE 102 U/L (46-116); ALT (SGPT) 95 U/L (10-68); BILIRUBIN - TOTAL 0.26 mg/dL (0.2-1.3); CALCIUM 8.3 mg/dL (8.5-10.1); CARBON DIOXIDE 30.2 mmol/L (21.0-32.0); CHLORIDE - SERUM 105 mmol/L (98-107); CREATININE - SERUM 0.7 mg/dL (0.6-1.3); GLUCOSE 92 mg/dL (74-106); PROTEIN - SERUM 6.8 g/dL (6.4-8.2); SODIUM 139 mmol/L (136-145); eGFR NON AFRICAN AMERICAN > 90 mL/min (90-120)
[2018-08-09 07:32] LABS: CALC OSMOLALITY 277 mosm/kg (275-300); POTASSIUM - SERUM 4.3 mmol/L (3.5-5.1); UREA NITROGEN 12 mg/dL (7-18)
--- NOTE | 2018-08-09 08:15 | NUR ---
PT LAYING IN BED RESTING WITH EYES OPEN. MOOD PLEASANT. PT WATCHING VIDEOS ON HIS PHONE AND LAUGHING. RESPONDS WELL TO VERBAL STIMULI. RESPIRATIONS EVEN AND UNLABORED, NO S/S OF DISTRESS NOTED. DRESSING TO BUTTOCKS, CDI. WILL CHANGE PER ORDER. PT MEDICATED WITH XANAX THIS AM FOR REPORTS OF ANXIETY. DENIES ANY FURTHER NEEDS. BED LOW AND LOCKED, SR UP X2, CL IN EASY. WILL CONTINUE TO MONITOR THROUGHOUT THE DAY.
[2018-08-09 08:51] VITALS: BP 101/65
[2018-08-09] MEDS ORDERED: MIRALAX17 GM PO (11:15)
[2018-08-09] MEDS ORDERED: BACLOFEN10 MG PO (11:15)
[2018-08-09] MEDS ORDERED: Nicoderm [PBKC] TRANSDERM (11:15)
[2018-08-09] MEDS ORDERED: XANAX2 MG PO (11:19)
[2018-08-09] MEDS ORDERED: NORCO 10-325 TA1 TAB PO (11:20)
--- NOTE | 2018-08-09 11:39 | MORECARE ---
CASE MANAGEMENT DISCHARGE SUMMARY PATIENT: TAMARA RAMIREZ UNIT: [id number] ADM DATE: 08/03/18 AGE: 32 : 84 SEX: M ROOM/BED: D.2222 AUTHOR: POOJA,DOC PHYSICIAN: REFERRING PHYSICIAN: KONG MA MD DATE OF SERVICE: 08/09/18 Discharge Plan Patient Name: TAMARA RAMIREZ Facility: [facility]:[place] : 1985 Planned Disposition: Anticipated Discharge Date: 08/05/18 Discharge Date: Expected LOS: 2 Initial Reviewer: [email or web address] Initial Review Date: 08/03/2018 Generated: 08/09/18 12:39 pm Comments DCP- Discharge Planning Updated by [email or web address]: Carol Trent on 08/09/18 10:[address] Received a call from Remy from [facility]. Remy states he is accepted to skilled bed at [facility] and will call with a machine operator picker time. I informed the patient and also told him they are semi private rooms. He is in agreement to discharge to [facility] to a skilled (Medicare) bed. He understands he will have a room mate. IMM explained and signed. CM will continue to follow and assist with discharge planning/needs. DCP- Discharge Planning Updated by [email or web address]: Carol Trent on 08/08/18 12:[address] Lachelle from [facility] called and has turned down admission. I spoke with Carol at [facility] and he was denied due to positive drug screen. I sent referral to [facility] and spoke to Remy (auto club safety program coordinator) and she is going to talk with the pension administrator there prior to authorization due to positive drug screen. I called [phone] to reach Rajinder with [facility] with no answer. I called Da with [facility], he declines. Da states they have too many steps and he would not be ambulatory enough for [facility]. I gave the patient a list of homeless shelters as well as [facility]. He states "I do not have a drug problem." CM will continue to follow and assist with discharge planning/needs. DCP- Discharge Planning Updated by [email or web address]: Carol Trent on 08/07/18 3:[address] [facility] have denied admission. I spoke with the patient he would like referred to [facility]. I called [facility] and spoke with Lachelle and clinical sent. CM will continue to follow and assist with discharge planning/needs. DCP- Discharge Planning Updated by [email or web address]: Carol Trent on 08/05/18 10:[address] Clinical [place] for [facility] and [facility]. CM will continue to follow and assist with discharge planning/needs. DCP- Discharge Planning Updated by [email or web address]: Carol Trent on 08/05/18 10:[address] Met with patient, he is wanting to go to a skilled therapy in [place] prior to going home for wound care and IV antibiotic therapy. States his mother is on Meth and cannot return to her home. I called [facility] and spoke with Jacqueline, she states they do not accept anyone under age 55. I've tried to call clinical coordinator for [facility] (2nd choice) and [facility] (3rd choice) with no answer. Will attempt again after the holidays. CM will continue to follow and assist with discharge planning/needs. DCP- Discharge Planning Updated by [email or web address]: Paty Rdz on 08/03/18 12:[address] Patient Name: TAMARA RAMIREZ Admission Status: ER Accout number: [id number] Admission Date: 08-03-2018 : 1985 Admission Diagnosis: Attending: KONG MA Current LOS: 1 Anticipated DC Date: 08-05-2018 Planned Disposition: Primary Insurance: MEDICARE A & B Discharge Planning Comments: CM met with patient to complete initial dc planning assessment. CM educated patient on the CM role and verbal consent given by patient to complete assessment. Patient reports he was living with his mother and her boyfriend unitl they got into a fight and he kicked them out. Prior to arrival at hospital today he was at a friends house. He reports he was recently in a prison home in [place] but was released because he was doing to well with therapy to stay. Not sure if he will qualify for Skilled at time of discharge. He is currently on IV antibiotics due to osteomyelitis. He had [facility] services to assist with IV medication and wound care. Patient reports he is not sure where he is going to go at dc and stated he is needing to apply for public housing. CM discussed alf medicaid and applying to live at the facility but he stated he was not interested in that once CM explained they would take his SSI check and give him a set amount each month. He plans to work on dc place while he is in the hospital. He stated his mom is staying with a friend and he cant stay with her. Patient is wheelchair bound and non ambulatory. He has dressing present to his left foot. CM will continue to follow and will assist as needed with dc plans/needs. Cattle Examiner: Paty Rdz RN, [facility] DCPIA - Discharge Planning Initial Assessment Updated by [email or web address]: Paty Rdz on 08/03/18 1:36 pm * Is the patient Alert and Oriented? Yes * How many steps to enter\\exit or inside your home? None * PCP Following up with Dr. Mcdowell from [facility]. * Pharmacy [facility] in [place] * Preadmission Environment Home with Family * ADLs Independent * Equipment Wheelchair * List name and contact numbers for known caregivers / representatives who currently or will assist patient after discharge: Shelby Archibald - mother - [phone] Hermila Mao - sister - [phone] * Verbal permission to speak to the caregivers and representatives has been obtained from the patient. Yes * Community resources currently utilized Home Health * Please name any agencies selected above. [facility] * Additional services required to return to the preadmission environment? Yes * Can the patient safely return to the preadmission environment? No * Has this patient been hospitalized within the prior 30 days at any hospital? Yes Coverage Notice Reviewer: [id number] - Carol Trent Notice Issued Date-Time: 08/09/2018 11:31 Notice Type: IM Discharge Notice Notice Delivered To: Patient Relationship to Patient: Self Science Instructor Name: Delivery Method: HAND - Hand Delivered Dinah Days: Prior Verbal Notification: Recipient Understood Notice: Yes Recipient Signature: Yes Med Rec Note Co-signed by Attending: Coverage Notice Comment: IMM explained, signed, copy given, original placed in MR Last DP export: 08/08/18 12:56 Patient Name: TAMARA RAMIREZ Page 64045 at 1139 All edits/amendments must be made on the electronic document DICTATION DATE: 08/09/181137 ENGRAVER STEEL PLATE: SOLO 08/09/18 1138 RPT#: [id number] GA DATE: STATUS: ADM IN [facility] [address] [place] [address] END OF REPORT
--- NOTE | 2018-08-09 12:24 | MORECARE ---
CASE MANAGEMENT DISCHARGE SUMMARY PATIENT: TAMARA RAMIREZ UNIT: [id number] ADM DATE: 08/03/18 AGE: 32 : 84 SEX: M ROOM/BED: D.2222 AUTHOR: POOJA,DOC PHYSICIAN: REFERRING PHYSICIAN: KONG MA MD DATE OF SERVICE: 08/09/18 Discharge Plan Patient Name: TAMARA RAMIREZ Facility: [facility]:[place] : 1985 Planned Disposition: Anticipated Discharge Date: 08/05/18 Discharge Date: Expected LOS: 2 Initial Reviewer: [email or web address] Initial Review Date: 08/03/2018 Generated: 08/09/18 1:24 pm Comments DCP- Discharge Planning Updated by [email or web address]: Carol Miley on 08/09/18 11:[address] Remy returned my call and states she needs a STEFFEN back before they can accept patient. STEFFEN filled out and sent for approval. CM will continue to follow and assist with discharge planning/needs. DCP- Discharge Planning Updated by [id number]: Carol Miley on 08/09/18 10:[address] Received a call from e[facility]my from [facility]. Remy states he is accepted to skilled bed at [facility] and will call with a pickling drum operator time. I informed the patient and also told him they are semi private rooms. He is in agreement to discharge to [facility] to a skilled (Medicare) bed. He understands he will have a room mate. IMM explained and signed. CM will continue to follow and assist with discharge planning/needs. DCP- Discharge Planning Updated by [id number]: Carol Trent on 08/08/18 12:[address] Lachelle from [facility] called and has turned down admission. I spoke with Carol at [facility] and he was denied due to positive drug screen. I sent referral to [facility] and spoke to Remy (media relations coordinator) and she is going to talk with the testing projects administrator there prior to authorization due to positive drug screen. I called [phone] to reach Rajinder with [facility] with no answer. I called Da with [facility], he declines. Da states they have too many steps and he would not be ambulatory enough for [facility]. I gave the patient a list of homeless shelters as well as [facility]. He states "I do not have a drug problem." CM will continue to follow and assist with discharge planning/needs. DCP- Discharge Planning Updated by [email or web address]: Carol Trent on 08/07/18 3:[address] [facility] have denied admission. I spoke with the patient he would like referred to [facility]. I called [facility] and spoke with Lachelle and clinical sent. CM will continue to follow and assist with discharge planning/needs. DCP- Discharge Planning Updated by [email or web address]: Carol Trent on 08/05/18 10:[address] Clinical [place] for [facility]. CM will continue to follow and assist with discharge planning/needs. DCP- Discharge Planning Updated by [email or web address]: Carol Trent on 08/05/18 10:[address] Met with patient, he is wanting to go to a skilled therapy in [place] prior to going home for wound care and IV antibiotic therapy. States his mother is on Meth and cannot return to her home. I called [facility] and spoke with Jacqueline, she states they do not accept anyone under age 55. I've tried to call clinical coordinator for [facility] (2nd choice) and [facility] (3rd choice) with no answer. Will attempt again after the holidays. CM will continue to follow and assist with discharge planning/needs. DCP- Discharge Planning Updated by [email or web address]: Paty Rdz on 08/03/18 12:[address] Patient Name: TAMARA RAMIREZ Admission Status: ER Accout number: [id number] Admission Date: 08-03-2018 : 1985 Admission Diagnosis: Attending: KONG MA Current LOS: 1 Anticipated DC Date: 08-05-2018 Planned Disposition: Primary Insurance: MEDICARE A & B Discharge Planning Comments: CM met with patient to complete initial dc planning assessment. CM educated patient on the CM role and verbal consent given by patient to complete assessment. Patient reports he was living with his mother and her boyfriend unitl they got into a fight and he kicked them out. Prior to arrival at hospital today he was at a friends house. He reports he was recently in a prison home in [place] but was released because he was doing to well with therapy to stay. Not sure if he will qualify for Skilled at time of discharge. He is currently on IV antibiotics due to osteomyelitis. He had [facility] services to assist with IV medication and wound care. Patient reports he is not sure where he is going to go at dc and stated he is needing to apply for public housing. CM discussed detention medicaid and applying to live at the facility but he stated he was not interested in that once CM explained they would take his SSI check and give him a set amount each month. He plans to work on dc place while he is in the hospital. He stated his mom is staying with a friend and he cant stay with her. Patient is wheelchair bound and non ambulatory. He has dressing present to his left foot. CM will continue to follow and will assist as needed with dc plans/needs. Digital Marketing Intern: Paty Rdz RN, [facility] DCPIA - Discharge Planning Initial Assessment Updated by [email or web address]: Paty Rdz on 08/03/18 1:36 pm * Is the patient Alert and Oriented? Yes * How many steps to enter\\exit or inside your home? None * PCP Following up with Dr. Mcdowell from [facility]. * Pharmacy [facility] in [place] * Preadmission Environment Home with Family * ADLs Independent * Equipment Wheelchair * List name and contact numbers for known caregivers / representatives who currently or will assist patient after discharge: Shelby Archibald - mother - [phone] Hermila Mao - sister - [phone] * Verbal permission to speak to the caregivers and representatives has been obtained from the patient. Yes * Community resources currently utilized Home Health * Please name any agencies selected above. [facility] * Additional services required to return to the preadmission environment? Yes * Can the patient safely return to the preadmission environment? No * Has this patient been hospitalized within the prior 30 days at any hospital? Yes External Providers External Provider: STEFANIA [facility] Next Contact Date: Service Request Date: Service Type: Resolution: Reviewer: Comments: Coverage Notice Reviewer: [email or web address] Virgli Trent Notice Issued Date-Time: 08/09/2018 11:31 Notice Type: IM Discharge Notice Notice Delivered To: Patient Relationship to Patient: Self Division Controller Name: Delivery Method: HAND - Hand Delivered Dinah Days: Prior Verbal Notification: Recipient Understood Notice: Yes Recipient Signature: Yes Med Rec Note Co-signed by Attending: Coverage Notice Comment: IMM explained, signed, copy given, original placed in MR Last DP export: 08/09/18 10:39 Patient Name: TAMARA RAMIREZ Page 10066 at 1224 All edits/amendments must be made on the electronic document DICTATION DATE: 08/09/18 122 SPINNING BATH PERSON: SOLO 08/09/18 1224 RPT#: [id number] DC DATE: STATUS: ADM IN [facility] [address] [place] [address] END OF REPORT
--- NOTE | 2018-08-09 12:44 | NUR ---
LYING IN BED,WITHOUT DISTRESS.
--- NOTE | 2018-08-09 15:47 | NUR ---
PT'S DRESSING TO RIGHT BUTTOCKS CHANGED PER ORDER. OLD DRESSING REMOVED, WOUND CLEANED WITH WOUND BRIDGE TENDER. MAXORB CUT OUT AND APPLIED TO BED OF WOUND. DRESSING PLACED OVER THE WOUND AND TAPED WITH SURGICAL TAPE. INITIALED AND DATED PER POLICIES AND PROCEDURES. PT TOLERATED WELL. CL IN EASY REACH.
[2018-08-09 15:59] VITALS: BP 102/58
--- NOTE | 2018-08-09 18:41 | NUR ---
PT LAYING IN BED RESTING WITH EYES CLOSED. PT NOT BOTHERED AT THIS TIME DUE TO HIM FINALLY GETTING SOME REST THIS PM. CL IN EASY REACH.
--- NOTE | 2018-08-09 19:00 | NUR ---
REPORT RECEIVED AND CARE OF PT ASSUMED. PT ROLLING AROUND UNIT IN HIS WHEELCHAIR AT THIS TIME. RIGHT PICC SALINE LOCKED....WILL RE-START LR AT 125 WHEN PT BACK IN HIS ROOM. VELAZQUEZ CATHETER DRAINING TO GRAVITY WITH YELLOW URINE IN COLLECTION BAG. WILL MONITOR FOR NEEDS.
[2018-08-09 20:00] VITALS: BP 101/67
--- NOTE | 2018-08-09 20:42 | NUR ---
HS MEDICATIONS GIVEN TO INCLUDE XANAX , NORCO, AND BACLOFEN PER PRN ORDERS FOR PAIN. WILL MONITOR FOR NEEDS.
--- NOTE | 2018-08-09 21:00 | NUR ---
GAVE ICE WATER AND ICE FOR SODA.
[2018-08-10] VITALS (7 sets, daily range): BP systolic 93–119; BP diastolic 46–78
--- NOTE | 2018-08-10 03:06 | NUR ---
GAVE XANAX 2 MG PO PER REQUEST FOR ANXIETY. WILL CONTINUE TO MONITOR FOR NEEDS.
[2018-08-10 05:56] LABS: BASOPHILS 0.7 % (0-2); EOSINOPHILS 6.7 % (0-7); HEMATOCRIT 38.7 % (42.0-54.0); HEMOGLOBIN 12.2 g/dL (13.5-17.5); IMMATURE GRANULOCYTES 0.1 % (0-5); LYMPHOCYTES 43.4 % (15-50); MCH 27.4 pg (26.0-34.0); MCHC 31.5 g/dL (31.0-37.0); MEAN PLATELET VOLUME 10.7 fL (7.4-10.4); MONOCYTES 8.8 % (2-11); NEUTROPHILS 40.3 % (40-80); PLATELET COUNT 300 10x3/uL (130-400); RBC 4.45 10x6/uL (4.20-6.10)
[2018-08-10 05:57] LABS: WBC 7.1 10x3/uL (4.8-10.8)
[2018-08-10 06:31] LABS: ALBUMIN 2.6 g/dL (3.4-5.0); ALKALINE PHOSPHATASE 104 U/L (46-116); ALT (SGPT) 85 U/L (10-68); BILIRUBIN - TOTAL 0.17 mg/dL (0.2-1.3); CALC OSMOLALITY 274 mosm/kg (275-300); CALCIUM 8.2 mg/dL (8.5-10.1); CARBON DIOXIDE 28.1 mmol/L (21.0-32.0); CHLORIDE - SERUM 103 mmol/L (98-107); CREATININE - SERUM 0.7 mg/dL (0.6-1.3); GLUCOSE 85 mg/dL (74-106); POTASSIUM - SERUM 4.1 mmol/L (3.5-5.1); PROTEIN - SERUM 6.5 g/dL (6.4-8.2); SODIUM 138 mmol/L (136-145); UREA NITROGEN 13 mg/dL (7-18); eGFR NON AFRICAN AMERICAN > 90 mL/min (90-120)
--- NOTE | 2018-08-10 08:00 | NUR ---
PATIENT UP IN IN HALLWAY MOVING AROUND. NO PROBLEMS AT THIS TIME.
--- NOTE | 2018-08-10 09:48 | NUR ---
PT WHEELING AROUND THE UNIT THIS AM TALKING TO STAFF AND HAVING CONVERSATIONS. MOOD PLEASANT, PT IN HIGH SPIRITS TODAY. PT MEDICATED WITH NORCO PRN PER EMAR FOR C/O PAIN IN BACK 8 OUT OF 10 ON A NUMERICAL SCALE. ROUTINE MEDS GIVEN, DENIES FURTHER NEEDS AT THIS TIME. RESPIRATIONS EVEN AND UNLABORED, NO S/S OF DISTRESS NOTED. LCTA. BOWEL SOUNDS PRESENT X4 QUAD. BILAT FOOT DRESSINGS CDI. DRESSING TO RIGHT BUTTOCKS CDI, TO BE CHANGED LATER TODAY. WILL CONTINUE TO MONITOR.
--- NOTE | 2018-08-10 16:55 | NUR ---
DRESSING ON BILAT FEET CHANGED PER ORDER, WOUNDS ON FEET CLEANSED WITH WOUND MACARONI MAKER AND PAINTED WITH BETADINE, THEN COVERED WITH A 4X4 AND WRAPPED WITH KERLEX. DRESSING TO RIGHT BUTTOCKS CHANGED PER ORDER. WOUND CLEANSED WITH WOUND MACARONI MAKER. MAXORB AG PACKED ON THE BED OF WOUND AND A 4X4 PLACED OVER WOUND AND TAPED WITH SURGICAL TAPE. DRESSING INITIALED AND DATED. PT TOLERATED WELL. DENIES FURTHER NEEDS AT THIS TIME.
--- NOTE | 2018-08-10 19:00 | NUR ---
REPORT RECEIVED AND CARE OF PT ASSUMED. PT LYING IN SUPINE POSITION WITH EYES CLOSED. RIGHT PICC LINE SALINE LOCKED. WILL MONITOR FOR NEEDS.
--- NOTE | 2018-08-10 21:09 | NUR ---
HS MEDICATIONS GIVEN TO INCLUDE BACLOFEN AND NORCO PER REQUEST PER PRN ORDERS. PT DECLINES TO HAVE IV FLUIDS RE-STARTED...PO INTAKE GOOD AND ENCOURAGED TO KEEP HYDRATED. WILL CONTINUE TO MONITOR FOR NEEDS.
--- NOTE | 2018-08-10 23:48 | NUR ---
GAVE XANAX 2 MG PO PER REQUEST FOR ANXIETY. WILL CONTINUE TO MONITOR FOR NEEDS. CALL LIGHT WITHIN REACH.
[2018-08-11 05:54] LABS: BASOPHILS 0.6 % (0-2); EOSINOPHILS 5.5 % (0-7); HEMATOCRIT 41.2 % (42.0-54.0); HEMOGLOBIN 13.1 g/dL (13.5-17.5); IMMATURE GRANULOCYTES 0.1 % (0-5); LYMPHOCYTES 42.9 % (15-50); MCH 27.6 pg (26.0-34.0); MCHC 31.8 g/dL (31.0-37.0); MCV 86.9 fL (80.0-100.0); MONOCYTES 10.8 % (2-11); NEUTROPHILS 40.1 % (40-80); PLATELET COUNT 303 10x3/uL (130-400); RBC 4.74 10x6/uL (4.20-6.10); RDW 14.9 % (11.5-14.5)
[2018-08-11 06:08] LABS: ALBUMIN 3.1 g/dL (3.4-5.0); ALKALINE PHOSPHATASE 134 U/L (46-116); ALT (SGPT) 85 U/L (10-68); BILIRUBIN - TOTAL 0.25 mg/dL (0.2-1.3); CALC OSMOLALITY 274 mosm/kg (275-300); CALCIUM 8.5 mg/dL (8.5-10.1); CARBON DIOXIDE 26.8 mmol/L (21.0-32.0); CHLORIDE - SERUM 103 mmol/L (98-107); CREATININE - SERUM 0.7 mg/dL (0.6-1.3); GLUCOSE 101 mg/dL (74-106); POTASSIUM - SERUM 4.7 mmol/L (3.5-5.1); PROTEIN - SERUM 7.4 g/dL (6.4-8.2); SODIUM 138 mmol/L (136-145); UREA NITROGEN 11 mg/dL (7-18); eGFR NON AFRICAN AMERICAN > 90 mL/min (90-120)
--- NOTE | 2018-08-11 07:53 | NUR ---
PT WHEELING AROUND IN WHEELCHAIR THIS AM, JUST RETURNED TO BED TO LAY DOWN FOR A WHILE. RESPIRATIONS EVEN AND UNLABORED, NO S/S OF DISTRESS NOTED. DRESSING TO RIGHT BUTTOCKS CDI, DRESSING TO BILAT FEET CDI. PT C/O PAIN IN BACK, WILL MEDICATE WITH NORCO PER EMAR ONCE TIME. BED LOW AND LOCKED, SR UP X2, CL IN EASY REACH. PT TALKATIVE THIS MORNING AND SEEMS TO BE IN HIGH SPIRITS. DENIES FURTHER NEEDS.
[2018-08-11 09:31] VITALS: BP 111/69
[2018-08-11 12:00] VITALS: BP 111/69
[2018-08-11 16:00] VITALS: BP 105/56
--- NOTE | 2018-08-11 19:00 | NUR ---
REPORT RECEIVED AND CARE OF PT ASSUMED. PT ROLLING AROUND UNIT IN HIS WHEELCHAIR AT THIS TIME.
[2018-08-11 21:02] VITALS: BP 110/69
--- NOTE | 2018-08-11 21:42 | NUR ---
HS MEDICATIONS GIVEN TO INCLUDE NORCO PER REQUEST FOR PAIN. WILL MONITOR FOR EFFECTIVENESS.
--- NOTE | 2018-08-11 23:22 | NUR ---
PT RESTING ON RIGHT SIDE WITH EYES CLOSED AND UNLABORED BREATHING. WILL CONTINUE TO MONITOR FOR NEEDS.
[2018-08-12] VITALS: BP 96/66
--- NOTE | 2018-08-12 05:01 | NUR ---
CHANGED DRESSINGS ON RIGHT BUTTOCK WOUND AND BILATERAL FEET. STAGE 4 PRESSURE ULCER ON RIGHT BUTTOCK MEASURES 7CM IN DIAMETER AND TUNNELING. CLEANSED WOUND WITH WOUND PERSONNEL MONITOR. APPLIED MAXORB TO WOUND BED. COVERED WITH 4X4'S AND COVERED THEM WITH BORDER GAUZE...PER ORDERS. CLEANSED BILATERAL FEET WITH WOUND PERSONNEL MONITOR AND THEN PAINTED WITH IODINE. RIGHT GREAT TOE WITH SORE ON BOTTOM AND BETWEEN TOE. PLACED GAUZED BETWEEN ALL TOES; COVERED WITH 4X4'S AND WRAPPED WITH KERLEX. LEFT FOOT WITH ALL TOES AMPUTATED. SORE WHERE 2ND TO LAST TOE WAS SCABBED OVER. SORE ON LEFT UPPER FOOT SCABBED. CLEANSED WITH WOUND PERSONNEL MONITOR AND PAINTED WITH IODINE. COVERED WOUNDS WITH 4X4'S AND WRAPPED WITH KERLEX...PER ORDERS.
[2018-08-12 06:40] LABS: BASOPHILS 0.4 % (0-2); EOSINOPHILS 5.2 % (0-7); HEMATOCRIT 40.3 % (42.0-54.0); HEMOGLOBIN 12.7 g/dL (13.5-17.5); IMMATURE GRANULOCYTES 0.2 % (0-5); LYMPHOCYTES 37.3 % (15-50); MCH 27.5 pg (26.0-34.0); MCHC 31.5 g/dL (31.0-37.0); MCV 87.4 fL (80.0-100.0); MEAN PLATELET VOLUME 10.4 fL (7.4-10.4); MONOCYTES 11.6 % (2-11); NEUTROPHILS 45.3 % (40-80); PLATELET COUNT 308 10x3/uL (130-400); RBC 4.61 10x6/uL (4.20-6.10); WBC 8.3 10x3/uL (4.8-10.8)
[2018-08-12 06:55] LABS: ALKALINE PHOSPHATASE 136 U/L (46-116); ALT (SGPT) 75 U/L (10-68); BILIRUBIN - TOTAL 0.32 mg/dL (0.2-1.3); CALC OSMOLALITY 282 mosm/kg (275-300); CALCIUM 8.3 mg/dL (8.5-10.1); CARBON DIOXIDE 31.2 mmol/L (21.0-32.0); CHLORIDE - SERUM 105 mmol/L (98-107); CREATININE - SERUM 0.7 mg/dL (0.6-1.3); GLUCOSE 80 mg/dL (74-106); POTASSIUM - SERUM 4.2 mmol/L (3.5-5.1); PROTEIN - SERUM 7.4 g/dL (6.4-8.2); SODIUM 143 mmol/L (136-145); UREA NITROGEN 11 mg/dL (7-18); eGFR NON AFRICAN AMERICAN > 90 mL/min (90-120)
--- NOTE | 2018-08-12 08:30 | NUR ---
PATIENT UP IN WITH NO PROBLEMS AT THIS TIME. VELAZQUEZ INTACT. NO COMPLAINTS. AWAITING DC TODAY.
[2018-08-12 09:39] VITALS: BP 104/61
[2018-08-12] MEDS ORDERED: HYDROCODON-ACE1 EAC7 PO (11:49)
[2018-08-12] MEDS ORDERED: XANAX1 MG PO (11:49)
[2018-08-12] MEDS ORDERED: AMBIEN5 MG PO ×2 (11:49→11:51)
--- NOTE | 2018-08-12 11:50 | MORECARE ---
CASE MANAGEMENT DISCHARGE SUMMARY PATIENT: TAMARA RAMIREZ UNIT: [id number] ADM DATE: 08/03/18 AGE: 32 : [birth year] SEX: M ROOM/BED: D.2222 AUTHOR: POOJA,DOC PHYSICIAN: REFERRING PHYSICIAN: KONG MA MD DATE OF SERVICE: 08/12/18 Discharge Plan Patient Name: TAMARA RAMIREZ Facility: [facility]:[place] : 1985 Planned Disposition: Anticipated Discharge Date: 08/05/18 Discharge Date: Expected LOS: 2 Initial Reviewer: [email or web address] Initial Review Date: 08/03/2018 Generated: 08/12/18 12:49 pm Comments DCP- Discharge Planning Updated by [email or web address]: Carol Trent on 08/12/18 10:[address] [facility] has not came back yet after corrections made this morning and refaxed. Patient states he wants to go home. States his aunt will pick him up and he will be staying with a cousin. States this is a safe discharge and he would still like to go to [facility]. States he called [facility] and they informed him that he had 30 days to come to the skilled facility to be admitted. I will fax the Steffen to [facility] when it returns. No other needs identified at this time. Home with family. DCP- Discharge Planning Updated by [email or web address]: Carol Trent on 08/09/18 11:[address] Remy returned my call and states she needs a STEFFEN back before they can accept patient. STEFFEN filled out and sent for approval. CM will continue to follow and assist with discharge planning/needs. DCP- Discharge Planning Updated by [id number]: Carol Thaojohn on 08/09/18 10:[address] Received a call from Remy from [facility]. Remy states he is accepted to skilled bed at [facility] and will call with a pick out hand time. I informed the patient and also told him they are semi private rooms. He is in agreement to discharge to [facility] to a skilled (Medicare) bed. He understands he will have a room mate. IMM explained and signed. CM will continue to follow and assist with discharge planning/needs. DCP- Discharge Planning Updated by [id number]: Carol Trent on 08/08/18 12:[address] Lachelle from [facility] called and has turned down admission. I spoke with Carol at [facility] and he was denied due to positive drug screen. I sent referral to [facility] and spoke to Remy (bariatric coordinator) and she is going to talk with the traffic safety administrator there prior to authorization due to positive drug screen. I called [phone] to reach Rajinder with [facility] with no answer. I called Da with [facility], he declines. Da states they have too many steps and he would not be ambulatory enough for [facility]. I gave the patient a list of homeless shelters as well as [facility]. He states "I do not have a drug problem." CM will continue to follow and assist with discharge planning/needs. DCP- Discharge Planning Updated by [email or web address]: Carol Trent on 08/07/18 3:[address] [facility] and [facility] have denied admission. I spoke with the patient he would like referred to [facility]. I called [facility] and spoke with Lachelle and clinical sent. CM will continue to follow and assist with discharge planning/needs. DCP- Discharge Planning Updated by [id number]: Carol Trent on 08/05/18 10:[address] [place] for [facility]. CM will continue to follow and assist with discharge planning/needs. DCP- Discharge Planning Updated by [id number]: Carol Trent on 08/05/18 10:[address] Met with patient, he is wanting to go to a skilled therapy in [place] prior to going home for wound care and IV antibiotic therapy. States his mother is on Meth and cannot return to her home. I called [facility] and spoke with Jacqueline, she states they do not accept anyone under age 55. I've tried to call clinical coordinator for [facility] (2nd choice) and [facility] (3rd choice) with no answer. Will attempt again after the holidays. CM will continue to follow and assist with discharge planning/needs. DCP- Discharge Planning Updated by [email or web address]: Paty Rdz on 08/03/18 12:[address] Patient Name: TAMARA RAMIREZ Admission Status: ER Accout number: [id number] Admission Date: 08-03-2018 : 1985 Admission Diagnosis: Attending: KONG MA Current LOS: 1 Anticipated DC Date: 08-05-2018 Planned Disposition: Primary Insurance: MEDICARE A & B Discharge Planning Comments: CM met with patient to complete initial dc planning assessment. CM educated patient on the CM role and verbal consent given by patient to complete assessment. Patient reports he was living with his mother and her boyfriend unitl they got into a fight and he kicked them out. Prior to arrival at hospital today he was at a friends house. He reports he was recently in a nursing home home in [place] but was released because he was doing to well with therapy to stay. Not sure if he will qualify for Skilled at time of discharge. He is currently on IV antibiotics due to osteomyelitis. He had [facility] services to assist with IV medication and wound care. Patient reports he is not sure where he is going to go at dc and stated he is needing to apply for public housing. CM discussed plumbing hardware assembler medicaid and applying to live at the facility but he stated he was not interested in that once CM explained they would take his SSI check and give him a set amount each month. He plans to work on dc place while he is in the hospital. He stated his mom is staying with a friend and he cant stay with her. Patient is wheelchair bound and non ambulatory. He has dressing present to his left foot. CM will continue to follow and will assist as needed with dc plans/needs. Software Engineering Analyst: Paty Rdz RN, [facility] DCPIA - Discharge Planning Initial Assessment Updated by [email or web address]: Paty Rdz on 08/03/18 1:36 pm * Is the patient Alert and Oriented? Yes * How many steps to enter\\exit or inside your home? None * PCP Following up with Dr. Mcdowell [facility]. * Pharmacy [facility] in [place] * Preadmission Environment Home with Family * ADLs Independent * Equipment Wheelchair * List name and contact numbers for known caregivers / representatives who currently or will assist patient after discharge: Shelby Archibald - mother - [phone] Hermila Mao - sister - [phone] * Verbal permission to speak to the caregivers and representatives has been obtained from the patient. Yes * Community resources currently utilized Home Health * Please name any agencies selected above. [facility] * Additional services required to return to the preadmission environment? Yes * Can the patient safely return to the preadmission environment? No * Has this patient been hospitalized within the prior 30 days at any hospital? Yes Coverage Notice Reviewer: [id number] Trent Notice Issued Date-Time: 08/09/2018 11:31 Notice Type: IM Discharge Notice Notice Delivered To: Patient Relationship to Patient: Self Complaint Operator Name: Delivery Method: HAND - Hand Delivered Dinah Days: Prior Verbal Notification: Recipient Understood Notice: Yes Recipient Signature: Yes Med Rec Note Co-signed by Attending: Coverage Notice Comment: IMM explained, signed, copy given, original placed in MR Reviewer: [id number] Virgil Trent Notice Issued Date-Time: 08/12/2018 11:42 Notice Type: IM Discharge Notice Notice Delivered To: Patient Relationship to Patient: Self Complaint Operator Name: Delivery Method: HAND - Hand Delivered Dinah Days: Prior Verbal Notification: Recipient Understood Notice: Yes Recipient Signature: Yes Med Rec Note Co-signed by Attending: Coverage Notice Comment: IMM explained, signed, copy given, original placed in MR Last DP export: 08/09/18 11:24 Patient Name: TAMARA RAMIREZ Page [id number] at 1150 All edits/amendments must be made on the electronic document DICTATION DATE: 08/12/18 1149 GLOBAL MARKETING MANAGER: SOLO 08/12/18 1149 RPT#: [id number] [place] DATE: STATUS: ADM IN [facility] [address] [place] [address] END OF REPORT
[2018-08-12] MEDS ORDERED: PAXIL20 MG PO (11:56)
--- NOTE | 2018-08-12 13:09 | MORECARE ---
CASE MANAGEMENT DISCHARGE SUMMARY PATIENT: TAMARA RAMIREZ UNIT: [id number] ADM DATE: 08/03/18 AGE: 32 : 83 SEX: M ROOM/BED: D.2222 AUTHOR: POOJA,DOC PHYSICIAN: REFERRING PHYSICIAN: KONG MA MD DATE OF SERVICE: 08/12/18 Discharge Plan Patient Name: TAMARA RAMIREZ Facility: [facility]:[place] : 1985 Planned Disposition: Anticipated Discharge Date: 08/05/18 Discharge Date: Expected LOS: 2 Initial Reviewer: [email or web address] Initial Review Date: 08/03/2018 Generated: 08/12/18 2:09 pm Comments DCP- Discharge Planning Updated by [id number]: Carol Trent on 08/12/18 12:[address] [facility] sent approval letter. I informed patient that if he discharges to home that the STEFFEN will need to be repeated before he can be admitted, he voiced understanding. He states he still wants to go home and check on his 4 year old son. I called Remy at [facility] and informed her and also faxed the letter to her from [place]. She states he has 30 days to come to their facility and I informed this to the patient. He states he plans on going on Sunday and is OK with the [place] having to be redone. DCP- Discharge Planning Updated by [id number]: Carol Miley on 08/12/18 10:[address] STEFFEN has not came back yet after corrections made this morning and refaxed. Patient states he wants to go home. States his aunt will pick him up and he will be staying with a cousin. States this is a safe discharge and he would still like to go to [facility]. States he called [facility] and they informed him that he had 30 days to come to the skilled facility to be admitted. I will fax the Steffen to [facility] when it returns. No other needs identified at this time. Home with family. DCP- Discharge Planning Updated by [email or web address]: Carol Trent on 08/09/18 11:[address] Remy returned my call and states she needs a STEFFEN back before they can accept patient. STEFFEN filled out and sent for approval. CM will continue to follow and assist with discharge planning/needs. DCP- Discharge Planning Updated by [email or web address]: Carol Trent on 08/09/18 10:[address] Received a call from Reym from [facility]. Remy states he is accepted to skilled bed at [facility] and will call with a pickle sorter time. I informed the patient and also told him they are semi private rooms. He is in agreement to discharge to [facility] to a skilled (Medicare) bed. He understands he will have a room mate. IMM explained and signed. CM will continue to follow and assist with discharge planning/needs. DCP- Discharge Planning Updated by [id number]: Carol Trent on 08/08/18 12:[address] Lachelle from [facility] called and has turned down admission. I spoke with Carol at [facility] and he was denied due to positive drug screen. I sent referral to [facility] and spoke to Remy (pilates coordinator) and she is going to talk with the netbackup administrator there prior to authorization due to positive drug screen. I called [phone] to reach Rajinder with [facility] with no answer. I called Da with [facility], he declines. Da states they have too many steps and he would not be ambulatory enough for [facility]. I gave the patient a list of homeless shelters as well as [facility]. He states "I do not have a drug problem." CM will continue to follow and assist with discharge planning/needs. DCP- Discharge Planning Updated by [id number]: Carol Trent on 08/07/18 3:[address] [facility] and [facility] have denied admission. I spoke with the patient he would like referred to [facility]. I called [facility] and spoke with Lachelle and clinical sent. CM will continue to follow and assist with discharge planning/needs. DCP- Discharge Planning Updated by [email or web address]: Carol Trent on 08/05/18 10:[address] [place] [facility]. CM will continue to follow and assist with discharge planning/needs. DCP- Discharge Planning Updated by [email or web address]: Carol Trent on 08/05/18 10:[address] Met with patient, he is wanting to go to a skilled therapy in [place] prior to going home for wound care and IV antibiotic therapy. States his mother is on Meth and cannot return to her home. I called [facility] and spoke with Jacqueline, she states they do not accept anyone under age 55. I've tried to call clinical coordinator for [facility] (2nd choice) and [facility] (3rd choice) with no answer. Will attempt again after the holidays. CM will continue to follow and assist with discharge planning/needs. DCP- Discharge Planning Updated by [id number]: Paty Rdz on 08/03/18 12:[address] Patient Name: TAMARA RAMIREZ Admission Status: ER Accout number: [id number] Admission Date: 08-03-2018 : 1985 Admission Diagnosis: Attending: KONG MA Current LOS: 1 Anticipated DC Date: 08-05-2018 Planned Disposition: Primary Insurance: MEDICARE A & B Discharge Planning Comments: CM met with patient to complete initial dc planning assessment. CM educated patient on the CM role and verbal consent given by patient to complete assessment. Patient reports he was living with his mother and her boyfriend unitl they got into a fight and he kicked them out. Prior to arrival at hospital today he was at a friends house. He reports he was recently in a [facility]pc home in [place] but was released because he was doing to well with therapy to stay. Not sure if he will qualify for Skilled at time of discharge. He is currently on IV antibiotics due to osteomyelitis. He had [facility] services to assist with IV medication and wound care. Patient reports he is not sure where he is going to go at [place] and stated he is needing to apply for public housing. CM discussed senior living medicaid and applying to live at the facility but he stated he was not interested in that once CM explained they would take his SSI check and give him a set amount each month. He plans to work on dc place while he is in the hospital. He stated his mom is staying with a friend and he cant stay with her. Patient is wheelchair bound and non ambulatory. He has dressing present to his left foot. CM will continue to follow and will assist as needed with dc plans/needs. Loft Worker Pile Driving: Paty Rdz RN, [facility] DCPIA - Discharge Planning Initial Assessment Updated by [email or web address]: Paty Rdz on 08/03/18 1:36 pm * Is the patient Alert and Oriented? Yes * How many steps to enter\\exit or inside your home? None * PCP Following up with Dr. Mcdowell from [facility]. * Pharmacy [facility] in [place] * Preadmission Environment Home with Family * ADLs Independent * Equipment Wheelchair * List name and contact numbers for known caregivers / representatives who currently or will assist patient after discharge: Shelby Archibald - mother - [phone] Hermila Mao - sister - [phone] * Verbal permission to speak to the caregivers and representatives has been obtained from the patient. Yes * Community resources currently utilized Home Health * Please name any agencies selected above. [facility] * Additional services required to return to the preadmission environment? Yes * Can the patient safely return to the preadmission environment? No * Has this patient been hospitalized within the prior 30 days at any hospital? Yes Coverage Notice Reviewer: [email or web address] Virgil Trent Notice Issued Date-Time: 08/09/2018 11:31 Notice Type: IM Discharge Notice Notice Delivered To: Patient Relationship to Patient: Self Er Manager Name: Delivery Method: HAND - Hand Delivered Dinah Days: Prior Verbal Notification: Recipient Understood Notice: Yes Recipient Signature: Yes Med Rec Note Co-signed by Attending: Coverage Notice Comment: IMM explained, signed, copy given, original placed in MR Reviewer: [id number] Trent Notice Issued Date-Time: 08/12/2018 11:42 Notice Type: IM Discharge Notice Notice Delivered To: Patient Relationship to Patient: Self Er Manager Name: Delivery Method: HAND - Hand Delivered Dinah Days: Prior Verbal Notification: Recipient Understood Notice: Yes Recipient Signature: Yes Med Rec Note Co-signed by Attending: Coverage Notice Comment: IMM explained, signed, copy given, original placed in MR Last DP export: 08/12/18 10:49 Patient Name: TAMARA RAMIREZ Page [id number] at 1309 All edits/amendments must be made on the electronic document DICTATION DATE: 08/12/18 1308 DINING CAR SERVER: SOLO 08/12/18 1308 RPT#: [id number] DC DATE: STATUS: ADM IN [facility] [address] [place] [address] END OF REPORT
[2018-08-12 13:21] VITALS: BP 115/74
--- NOTE | 2018-08-12 15:34 | MORECARE ---
CASE MANAGEMENT DISCHARGE SUMMARY PATIENT: TAMARA RAMIREZ UNIT: [id number] ADM DATE: 08/03/18 AGE: 32 : 84 SEX: M ROOM/BED: D.2222 AUTHOR: POOJADOC PHYSICIAN: REFERRING PHYSICIAN: KONG MA MD DATE OF SERVICE: 08/12/18 Discharge Plan Patient Name: TAMARA RAMIREZ Facility: [facility]:[place] : 1985 Planned Disposition: Anticipated Discharge Date: 08/05/18 Discharge Date: 08/12/2018 Expected LOS: 2 Initial Reviewer: [email or web address] Initial Review Date: 08/03/2018 Generated: 08/12/18 4:33 pm Comments DCP- Discharge Planning Updated by [id number]: Carol Trent on 08/12/18 12:[address] [facility] sent approval letter. I informed patient that if he discharges to home that the STEFFEN will need to be repeated before he can be admitted, he voiced understanding. He states he still wants to go home and check on his 4 year old son. I called Remy at [facility] and informed her and also faxed the letter to her from [place]. She states he has 30 days to come to their facility and I informed this to the patient. He states he plans on going on Sunday and is OK with the Steffen having to be redone. DCP- Discharge Planning Updated by [email or web address]: Carol Miley on 08/12/18 10:[address] [facility] has not came back yet after corrections made this morning and refaxed. Patient states he wants to go home. States his aunt will pick him up and he will be staying with a cousin. States this is a safe discharge and he would still like to go to [facility]. States he called [facility] and they informed him that he had 30 days to come to the skilled facility to be admitted. I will fax the [place] to [facility] when it returns. No other needs identified at this time. Home with family. DCP- Discharge Planning Updated by [email or web address]: Carol Miley on 08/09/18 11:[address] Remy returned my call and states she needs a STEFFEN back before they can accept patient. STEFFEN filled out and sent for approval. CM will continue to follow and assist with discharge planning/needs. DCP- Discharge Planning Updated by [email or web address]: Carol Trent on 08/09/18 10:[address] Received a call from Remy from [facility]. Remy states he is accepted to skilled bed at [facility] and will call with a steel pickler time. I informed the patient and also told him they are semi private rooms. He is in agreement to discharge to [facility] to a skilled (Medicare) bed. He understands he will have a room mate. IMM explained and signed. CM will continue to follow and assist with discharge planning/needs. DCP- Discharge Planning Updated by [id number]: Carol Trent on 08/08/18 12:[address] Lachelle from [facility] called and has turned down admission. I spoke with Carol at [facility] and he was denied due to positive drug screen. I sent referral to [facility] and spoke to Remy (billing and insurance coordinator) and she is going to talk with the higher education administrator there prior to authorization due to positive drug screen. I called [phone] to reach Rajinder with [facility] with no answer. I called Da with [facility], he declines. Da states they have too many steps and he would not be ambulatory enough for [facility]. I gave the patient a list of homeless shelters as well as [facility]. He states "I do not have a drug problem." CM will continue to follow and assist with discharge planning/needs. DCP- Discharge Planning Updated by [email or web address]: Carol Trent on 08/07/18 3:[address] [facility] and [facility] have denied admission. I spoke with the patient he would like referred to [facility]. I called [facility] and spoke with Lachelle and clinical sent. CM will continue to follow and assist with discharge planning/needs. DCP- Discharge Planning Updated by [email or web address]: Carol Trent on 08/05/18 10:[address] Clinical faxed to [place] for [facility]. CM will continue to follow and assist with discharge planning/needs. DCP- Discharge Planning Updated by [email or web address]: Carol Trent on 08/05/18 10:[address] Met with patient, he is wanting to go to a skilled therapy in [place] prior to going home for wound care and IV antibiotic therapy. States his mother is on Meth and cannot return to her home. I called [facility] and spoke with Jacqueline, she states they do not accept anyone under age 55. I've tried to call clinical coordinator for [facility] (2nd choice) and [facility] (3rd choice) with no answer. Will attempt again after the holidays. CM will continue to follow and assist with discharge planning/needs. DCP- Discharge Planning Updated by [id number]: Paty Rdz on 08/03/18 12:[address] Patient Name: TAMARA RAMIREZ Admission Status: ER Accout number: [id number] Admission Date: 08-03-2018 : 1985 Admission Diagnosis: Attending: KONG MA Current LOS: 1 Anticipated DC Date: 08-05-2018 Planned Disposition: Primary Insurance: MEDICARE A & B Discharge Planning Comments: CM met with patient to complete initial dc planning assessment. CM educated patient on the CM role and verbal consent given by patient to complete assessment. Patient reports he was living with his mother and her boyfriend unitl they got into a fight and he kicked them out. Prior to arrival at hospital today he was at a friends house. He reports he was recently in a penitentiary home in [place] but was released because he was doing to well with therapy to stay. Not sure if he will qualify for Skilled at time of discharge. He is currently on IV antibiotics due to osteomyelitis. He had [facility] services to assist with IV medication and wound care. Patient reports he is not sure where he is going to go at pa and stated he is needing to apply for public housing. CM discussed care home medicaid and applying to live at the facility but he stated he was not interested in that once CM explained they would take his SSI check and give him a set amount each month. He plans to work on dc place while he is in the hospital. He stated his mom is staying with a friend and he cant stay with her. Patient is wheelchair bound and non ambulatory. He has dressing present to his left foot. CM will continue to follow and will assist as needed with dc plans/needs. Securities Settlement Processor: Paty Rdz RN, [facility] DCPIA - Discharge Planning Initial Assessment Updated by [email or web address]: Paty Rdz on 08/03/18 1:36 pm * Is the patient Alert and Oriented? Yes * How many steps to enter\\exit or inside your home? None * PCP Following up with Dr. Mcdowell from residential stay. * Pharmacy [facility] in [place] * Preadmission Environment Home with Family * ADLs Independent * Equipment Wheelchair * List name and contact numbers for known caregivers / representatives who currently or will assist patient after discharge: Shelby Archibald - mother - [phone] Hermila Mao - sister - [phone] * Verbal permission to speak to the caregivers and representatives has been obtained from the patient. Yes * Community resources currently utilized Home Health * Please name any agencies selected above. [facility] for Wound Care * Additional services required to return to the preadmission environment? Yes * Can the patient safely return to the preadmission environment? No * Has this patient been hospitalized within the prior 30 days at any hospital? Yes Coverage Notice Reviewer: [email or web address] Virgil Trent Notice Issued Date-Time: 08/09/2018 11:31 Notice Type: IM Discharge Notice Notice Delivered To: Patient Relationship to Patient: Self Child Welfare Assistant Name: Delivery Method: HAND - Hand Delivered Dinah Days: Prior Verbal Notification: Recipient Understood Notice: Yes Recipient Signature: Yes Med Rec Note Co-signed by Attending: Coverage Notice Comment: IMM explained, signed, copy given, original placed in MR Reviewer: [id number] Virgil Trent Notice Issued Date-Time: 08/12/2018 11:42 Notice Type: IM Discharge Notice Notice Delivered To: Patient Relationship to Patient: Self Child Welfare Assistant Name: Delivery Method: HAND - Hand Delivered Dinah Days: Prior Verbal Notification: Recipient Understood Notice: Yes Recipient Signature: Yes Med Rec Note Co-signed by Attending: Coverage Notice Comment: IMM explained, signed, copy given, original placed in MR Last DP export: 08/12/18 12:09 Patient Name: TAMARA RAMIREZ Page [id number] at 1534 All edits/amendments must be made on the electronic document DICTATION DATE: 08/12/18 1533 INSULATING MACHINE OPERATOR: SOLO 08/12/18 153 RPT#: [id number] DC DATE:08/12/18 STATUS: DIS IN [facility] [address] [place] [address] END OF REPORT
== END 2018-08-12 15:16 | disposition home or self-care (01) | DRG 539 ==
LOC: D.ER 09:26 → D.EDHOLD 10:49 → D.MS 10:49
PROVIDERS: Emergency Medicine; Family Medicine; ADMIT Internal Medicine Nephrology
PROC: 0HBMXZZ Excision of Right Foot Skin, External Approach (ICD-10-PCS; principal; 2018-08-05)
DX: M86.672 Other chronic osteomyelitis, left ankle and foot (principal); L89.154 Pressure ulcer of sacral region, stage 4; N39.0 Urinary tract infection, site not specified; K59.2 Neurogenic bowel, not elsewhere classified; F17.213 Nicotine dependence, cigarettes, with withdrawal; G82.21 Paraplegia, complete; M86.671 Other chronic osteomyelitis, right ankle and foot; F43.12 Post-traumatic stress disorder, chronic

== ENCOUNTER 2018-10-05 12:01 | Inpatient (IN) | payer MEDICARE ==
[~2018-10-05] VITALS: Ht 182.9 cm; Wt 63.5 kg
[~2018-10-05 12:01] MED LIST: AMBIEN10 MG PO; AMBIEN5 MG PO; BACLOFEN10 MG PO; HYDROCODON-ACE1 EAC7 PO; MIRALAX17 GM PO; NORCO 10-325 TA1 TAB PO; Nicoderm [PBKC] TRANSDERM; PAXIL20 MG PO; PAXIL40 MG PO; XANAX1 MG PO; XANAX2 MG PO
[2018-10-05 13:00] LABS: ALKALINE PHOSPHATASE 186 U/L (46-116); ALT (SGPT) 113 U/L (10-68); BILIRUBIN - TOTAL 0.36 mg/dL (0.2-1.3); CALC OSMOLALITY 277 mosm/kg (275-300); CALCIUM 7.9 mg/dL (8.5-10.1); CARBON DIOXIDE 24.9 mmol/L (21.0-32.0); CHLORIDE - SERUM 105 mmol/L (98-107); CREATININE - SERUM 0.6 mg/dL (0.6-1.3); GLUCOSE 80 mg/dL (74-106); POTASSIUM - SERUM 3.9 mmol/L (3.5-5.1); PROTEIN - SERUM 7.8 g/dL (6.4-8.2); SODIUM 140 mmol/L (136-145); UREA NITROGEN 12 mg/dL (7-18); eGFR NON AFRICAN AMERICAN > 90 mL/min (90-120)
[2018-10-05 13:03] LABS: BASOPHILS 0.5 % (0-2); EOSINOPHILS 2.4 % (0-7); HEMATOCRIT 44.2 % (42.0-54.0); HEMOGLOBIN 14.5 g/dL (13.5-17.5); IMMATURE GRANULOCYTES 0.1 % (0-5); LYMPHOCYTES 31.6 % (15-50); MCH 27.3 pg (26.0-34.0); MCHC 32.8 g/dL (31.0-37.0); MCV 83.1 fL (80.0-100.0); MONOCYTES 7.1 % (2-11); NEUTROPHILS 58.3 % (40-80); PLATELET COUNT 348 10x3/uL (130-400); RBC 5.32 10x6/uL (4.20-6.10); RDW 14.3 % (11.5-14.5); WBC 7.4 10x3/uL (4.8-10.8)
[2018-10-05 13:08] VITALS: BP 106/78
[2018-10-05 13:37] LABS: APPEARANCE CLEAR (CLEAR); BILIRUBIN NEGATIVE (NEGATIVE); COLOR STRAW (YELLOW); GLUCOSE NEGATIVE (NEGATIVE); KETONE NEGATIVE (NEGATIVE); NITRITE NEGATIVE (NEGATIVE); PROTEIN NEGATIVE (NEGATIVE); SPECIFIC GRAVITY 1.005 (1.005-1.020); UROBILINOGEN NORMAL (NORMAL)
[2018-10-05 14:10] VITALS: BP 106/68
[2018-10-05 15:30] VITALS: BP 112/68
[2018-10-05] MEDS ORDERED: TAMIFLU75 MG PO (15:49)
[2018-10-05] MEDS ORDERED: ZOFRAN ODT4 MG/UDTAB PO (15:49)
[2018-10-05 16:30] VITALS: BP 110/68
[2018-10-05 17:01] LABS: CKMB 1.6 U/L (0.0-3.6)
[2018-10-05 17:15] VITALS: BP 108/72
[2018-10-05 18:12] VITALS: BP 116/68
[2018-10-05 18:27] LABS: INR 1.07 (0.85-1.17); PROTIME 13.4 SECONDS (11.6-15.0)
--- NOTE | 2018-10-05 21:04 | NUR ---
PT GIVEN ISIS HALL- REQUESTING NORCO FOR PAIN- STATES "I USUALLY TAKE IT EVERY 4 HOURS"- VANCOMYCIN INFUSING.
--- NOTE | 2018-10-05 22:04 | NUR ---
NS AT [facility] AND VANCOMYCIN IVPB CONTINUED ON THE FLOOR. WOUND CARE TO DECUBITIS- WET TO DRY- DONE PRIOR TO DEPARTURE.
[2018-10-06] VITALS (7 sets, daily range): BP systolic 100–148; BP diastolic 36–84; BMI 19.0
--- NOTE | 2018-10-06 01:28 | NUR ---
PT ALERT AND ORIENTED. PT HAS REQUESTED SEVERAL FOOD ITEMS. PT HAS HAD TWO SANDWICH TRAYS. SEVERAL JELLOS, ICE CREAM, AND PUDDINGS WELL FRANCISCO CRACKERS. PT REQUESTED SELF CATH STICKS OR IN AND OUT CATHETER BAGS TO PERFORM SELF CATHS. PT REQUESTS PAIN MEDICINE AND/OR XANAX WHEN AVAILABLE.
--- NOTE | 2018-10-06 07:15 | NUR ---
MORNING ASSESSMENT COMPLETE. SEE ASSESSMENT FLOWSHEET FOR FURTHER DETAILS PT LYING IN BED AAO X4 TO PERSON, PLACE, TIME, AND SITUATION. DENIES NEEDS AT THSI TIME. CL IN REACH. SIDE RAILS UP X3 FOR PATIENT SAEFTY.
--- NOTE | 2018-10-06 19:40 | NUR ---
PT ALERT & ORIENTED. C/O LEFT FOREARM IV LEAKING AND SORE. REMOVED IV CATHETER INTACT. RESITED 20 GAUGE IV TO RIGHT FOREARM 1ST ATTEMPT. RESUMED IV FLUIDS/ANTIBIOTIC INFUSION. ASSESSMENT PER FLOW-SHEET. WARMED UP PIE FOR PT AND BROUGHT HIM ICE CREAM AND COKES. NO OTHER NEEDS. WILL CONTINUE TO MONITOR.
--- NOTE | 2018-10-06 21:18 | NUR ---
GAVE PT SCHEDULED MEDS. PT C/O BACK PAIN 03/22. GAVE NORCO-10. CLEANSED WOUND TO RIGHT BUTTOCKS, MOISTENED KERLIX, PACKED WET TO DRY, AND SECURED WITH TAPE. NO OTHER NEEDS. WILL CONTINUE TO MONITOR.
[2018-10-07] VITALS: BP 98/50
[2018-10-07 04:00] VITALS: BP 98/45
[2018-10-07 05:09] LABS: BASOPHILS 0.2 % (0-2); EOSINOPHILS 0.3 % (0-7); HEMATOCRIT 35.6 % (42.0-54.0); IMMATURE GRANULOCYTES 0.2 % (0-5); LYMPHOCYTES 28.6 % (15-50); MCH 26.5 pg (26.0-34.0); MCHC 31.5 g/dL (31.0-37.0); MCV 84.4 fL (80.0-100.0); MEAN PLATELET VOLUME 10.8 fL (7.4-10.4); MONOCYTES 7.5 % (2-11); NEUTROPHILS 63.2 % (40-80); PLATELET COUNT 345 10x3/uL (130-400); RDW 14.5 % (11.5-14.5)
[2018-10-07 05:12] LABS: HEMOGLOBIN 11.2 g/dL (13.5-17.5); RBC 4.22 10x6/uL (4.20-6.10)
[2018-10-07 05:30] LABS: ALBUMIN 2.3 g/dL (3.4-5.0); ALKALINE PHOSPHATASE 127 U/L (46-116); BILIRUBIN - TOTAL 0.17 mg/dL (0.2-1.3); CALCIUM 7.4 mg/dL (8.5-10.1); CHLORIDE - SERUM 108 mmol/L (98-107); CREATININE - SERUM 0.6 mg/dL (0.6-1.3); POTASSIUM - SERUM 3.9 mmol/L (3.5-5.1); PROTEIN - SERUM 6.1 g/dL (6.4-8.2); SODIUM 141 mmol/L (136-145); UREA NITROGEN 13 mg/dL (7-18); eGFR NON AFRICAN AMERICAN > 90 mL/min (90-120)
[2018-10-07 05:45] LABS: CALC OSMOLALITY 282 mosm/kg (275-300); GLUCOSE 130 mg/dL (74-106)
[2018-10-07 05:46] LABS: ALT (SGPT) 74 U/L (10-68)
[2018-10-07 08:44] VITALS: BP 101/59
--- NOTE | 2018-10-07 09:20 | NUR ---
PT RESTING IN BED QUIETLY NO ACUTE DISTRESS NOTED. REPORTS PAIN 04/22, INFORMED TIME OF NEXT PAIN MEDICATION. BACLOFEN REQUESTED AT THIS TIME. ADMINISTERED PER MD ORDERS. IV TO RIGHT FOREARM WITH NS @ [facility]. DRESSING TO RIGHT BUTTOCKS C/D/I. DENIES FURTHER NEEDS AT THIS TIME. CL WITHIN REACH. ENCOURAGED TO CALL WITH NEEDS. CONTINUE POC
[2018-10-07 10:59] VITALS: BMI 19.0
[2018-10-07 13:16] VITALS: BP 94/46
[2018-10-07 15:37] VITALS: Ht 182.9 cm; Wt 63.5 kg
[2018-10-07 17:29] VITALS: BP 135/90
[2018-10-07 20:00] VITALS: BP 131/84
[2018-10-08 04:00] VITALS: BP 125/75; BP 131/89
[2018-10-08 05:21] LABS: BASOPHILS 0.3 % (0-2); EOSINOPHILS 1.6 % (0-7); HEMATOCRIT 39.8 % (42.0-54.0); HEMOGLOBIN 12.7 g/dL (13.5-17.5); IMMATURE GRANULOCYTES 0.3 % (0-5); LYMPHOCYTES 39.4 % (15-50); MCH 26.7 pg (26.0-34.0); MCHC 31.9 g/dL (31.0-37.0); MCV 83.8 fL (80.0-100.0); MEAN PLATELET VOLUME 10.4 fL (7.4-10.4); MONOCYTES 7.6 % (2-11); NEUTROPHILS 50.8 % (40-80); PLATELET COUNT 374 10x3/uL (130-400); RBC 4.75 10x6/uL (4.20-6.10); RDW 14.3 % (11.5-14.5)
[2018-10-08 05:48] LABS: ALBUMIN 2.7 g/dL (3.4-5.0); ALKALINE PHOSPHATASE 136 U/L (46-116); BILIRUBIN - TOTAL 0.24 mg/dL (0.2-1.3); CALC OSMOLALITY 280 mosm/kg (275-300); CALCIUM 7.6 mg/dL (8.5-10.1); CARBON DIOXIDE 25.8 mmol/L (21.0-32.0); CHLORIDE - SERUM 103 mmol/L (98-107); CREATININE - SERUM 0.7 mg/dL (0.6-1.3); GLUCOSE 129 mg/dL (74-106); POTASSIUM - SERUM 3.5 mmol/L (3.5-5.1); PROTEIN - SERUM 6.9 g/dL (6.4-8.2); SODIUM 140 mmol/L (136-145); UREA NITROGEN 13 mg/dL (7-18); eGFR NON AFRICAN AMERICAN > 90 mL/min (90-120)
[2018-10-08 06:00] LABS: ALT (SGPT) 94 U/L (10-68)
--- NOTE | 2018-10-08 07:45 | NUR ---
PATIENT ADMITTED WITH STAGE 4 DECUBITUS TO RIGHT BUTTOCK, DRESING IN PLACE, TO HAVE DEBRIEDMENT TOMORROW 10/09 RESTING WITH NO NEEDS VOICED, CALL LIGHT IN REACH. IV NS@ [facility] TO RIGHT FOREARM. VELAZQUEZ CATH PATENT WITH CLEAR YELLOW URINE TO BEDSIDE DRAINAGE.
[2018-10-08 09:23] VITALS: BP 106/62
--- NOTE | 2018-10-08 12:36 | MORECARE ---
CASE MANAGEMENT DISCHARGE SUMMARY PATIENT: TAMARA RAMIREZ UNIT: [id number] ADM DATE: 10/05/18 AGE: 33 : 84 SEX: M ROOM/BED: D.2213 AUTHOR: HILLARY PATTON PHYSICIAN: REFERRING PHYSICIAN: MARIO CARROLL MD DATE OF SERVICE: 10/08/18 Discharge Plan Patient Name: TAMARA RAMIREZ [facility] [facility] 1985 Planned Disposition: Inpatient Rehab Anticipated Discharge Date: Discharge Date: Expected LOS: Initial Reviewer: [email or web address] Initial Review Date: 10/05/2018 Generated: 10/08/18 1:36 pm DCPIA - Discharge Planning Initial Assessment Updated by [email or web address]: Yelitza Payne on 10/08/18 12:35 pm * Is the patient Alert and Oriented? Yes * How many steps to enter\exit or inside your home? * PCP NONE WAS FIRED FROM DR KERN * Pharmacy [facility] * Preadmission Environment Home with Family * ADLs Independent * Equipment Rolling Walker Shower Chair Walker Wheelchair * List name and contact numbers for known caregivers / representatives who currently or will assist patient after discharge: AZRA MORROW (MOTHER) [phone] * Verbal permission to speak to the caregivers and representatives has been obtained from the patient. N/A * Community resources currently utilized None * Additional services required to return to the preadmission environment? Yes * Can the patient safely return to the preadmission environment? Yes * Has this patient been hospitalized within the prior 30 days at any hospital? No Patient Name: TAMARA RAMIREZ Page [id number] at 1236 All edits/amendments must be made on the electronic document DICTATION DATE: 10/08/18 1235 SHIPWRIGHT HELPER: SOLO 10/08/18 1235 RPT#: [id number] DC DATE: STATUS: ADM IN [facility] [address] [place] [address] END OF REPORT
--- NOTE | 2018-10-08 12:42 | MORECARE ---
CASE MANAGEMENT DISCHARGE SUMMARY PATIENT: TAMARA RAMIREZ UNIT: [id number] ADM DATE: 10/05/18 AGE: 33 : [birth year] SEX: M ROOM/BED: D.2213 AUTHOR: POOJADOC PHYSICIAN: REFERRING PHYSICIAN: MARIO CARROLL MD DATE OF SERVICE: 10/08/18 Discharge Plan Patient Name: TAMARA RAMIREZ Facility: [facility]:[place] : 1985 Planned Disposition: Inpatient Rehab Anticipated Discharge Date: Discharge Date: Expected LOS: Initial Reviewer: [email or web address] Initial Review Date: 10/05/2018 Generated: 10/08/18 1:42 pm Comments DCP- Discharge Planning Updated by [id number]: Yelitza Payne on 10/08/18 11:[address] Patient Name: TAMARA RAMIREZ Admission Status: ER Accout number: [id number] Admission Date: 10-05-2018 : 1985 Admission Diagnosis:PRESSURE ULCER OF RIGHT BUTTOCK, STAGE 4 Attending: MARIO CARROLL Current LOS: 3 Anticipated DC Date: Planned Disposition: Inpatient Rehab Primary Insurance: MEDICARE A & B Discharge Planning Comments: CM met with patient to complete initial dc planning assessment. CM educated patient on the CM role and verbal consent given by patient to complete assessment. Patient lives at his mother's boyfriends home with his mom. At discharge patient would like to go to inpatient rehab. After rehab he would like to try to get assisted living. He states his mom help him and the house is safe, but would like his own. CM discussed availability of home health, rehab services, and medical equipment. Patient talked about [place] choices and he stated he would apply for that online for his brother to be his caregiver. I asked if he wanted a information on companies who also provide that care and she stated no. Patient has a wheelchair, walker, shower chair at home. He stated that he can walk, but sometimes over does it, but would like to be pushed in therapy. I spoke with Dedra in Inpatient rehab CM will continue to follow and will assist as needed with dc plans/needs. Liquor Tester: Yelitza Payne DCPIA - Discharge Planning Initial Assessment Updated by [email or web address]: Yelitza Payne on 10/08/18 12:35 pm * Is the patient Alert and Oriented? Yes * How many steps to enter\exit or inside your home? * PCP NONE WAS FIRED FROM DR KERN * Pharmacy [facility] * Preadmission Environment Home with Family * ADLs Independent * Equipment Rolling Walker Shower Chair Walker Wheelchair * List name and contact numbers for known caregivers / representatives who currently or will assist patient after discharge: AZRA MORROW (MOTHER) [phone] * Verbal permission to speak to the caregivers and representatives has been obtained from the patient. N/A * Community resources currently utilized None * Additional services required to return to the preadmission environment? Yes * Can the patient safely return to the preadmission environment? Yes * Has this patient been hospitalized within the prior 30 days at any hospital? No Last DP export: 10/08/18 11:36 a Patient Name: TAMARA RAMIREZ Page [id number] at 1242 All edits/amendments must be made on the electronic document DICTATION DATE: 10/08/18 1242 TOOL RADIAL DRILL PRESS SET UP OPERATOR: SOLO 10/08/18 1242 RPT#: [id number] DC DATE: STATUS: ADM IN [facility] [address] [place] [address] END OF REPORT
[2018-10-08 14:21] VITALS: BP 134/84
--- NOTE | 2018-10-08 15:31 | NUR ---
WOUND CULTURE PROVIDED TO RIGHT BUTTOCK WITH WET TO DRY DRESSING APPLIED
--- NOTE | 2018-10-08 16:46 | NUR ---
Rehab Note- Acute Inpatient Acute Rehab prescreen order received. Visited with the patient- he is very eager to come to [facility] Acute INpatient Rehab. Will follow at this time as he is scheduled for decubitus debridement 10/09/18. Thank you for this referral! Dedra Smith RN Clinical Liaison, [facility] Rehab
[2018-10-08 17:18] VITALS: BP 130/82
[2018-10-08 20:00] VITALS: BP 139/80
--- NOTE | 2018-10-08 20:00 | NUR ---
SITTING UP IN BED FAMILY MEMBERS AT BEDSIDE IV INFUSING WITHOUT DIFFICULTY VELAZQUEZ CATH TO GRAVITY DRAINAGE NO C/O OR REQUEST
--- NOTE | 2018-10-08 22:30 | NUR ---
OUT OF ROOM PER W/C ACCOMPIED BY BROTHER DID NOT INFORM NURSE WAS GOING OUT
--- NOTE | 2018-10-09 | NUR ---
WAS TOLD IN REPORT PT HAS BEEN GONE SINCE 2229 THIS EVENING. CALLED NEXT OF KIN AWAITING PHONE CALL. PT STILL NOT IN ROOM. SECURITY NOTIFIED AND LOOKING FOR PT AT THIS TIME.
--- NOTE | 2018-10-09 01:20 | NUR ---
NO CALL YET. PT STILL GONE. CALLED NEXT OF KIN AGAIN WITH NO RESPONSE. CALL PT HOME PHONE NUMBER WITH NO RESPONSE. WILL TALK WITH PIPELINE MAINTENANCE SUPERVISOR ON NEXT MOVE.
--- NOTE | 2018-10-09 01:37 | NUR ---
CALLED [place] [employer]. TO REPORT THAT PATIENT LEFT HOSPITAL WITH IV ACCESS. POLICE TOLD ME THEY WOULD GO TO PT HOME TO TRY TO LOCATE PT AND WILL CALL ME BACK. WILL FALLOW UP.
--- NOTE | 2018-10-09 02:18 | NUR ---
[place] [employer] CALLED ME BACK STATED THE ADDRESS I GAVE THEM OFF OF THE PT CHART IS HIS SISTERS HOUSE AND PT WAS NO THERE. POLICE STATED THAT THIS PT IS A DRUG USER HE HAS DELT WITH HIM ON MANY OCCATIONS AND THAT THERE IS NO TELLING WHICH DRUG HOUSE HE IS AT. POLICE STATED THAT THE SISTER OF THE PT STATED SHE DOES NOT HAVE MUCH TO DO WITH HER BROTHER AND HE DID NOT LIVE THERE WITH HER. POLICE STATED HE WILL KEEP LOOKING FOR HIM AND LET ME KNOW IF HE COMES UP. I WILL TRY TO CALL PT NEXT OF KIN AGAIN. WILL FALLOW UP.
--- NOTE | 2018-10-09 03:00 | NUR ---
PT ARRIVED BACK TO THE FLOOR. PT STATED HE WAS NOT AWARE HE WAS GONE FOR THAT LONG AND STATES HE NEVER LEFT THE PARKING LOT. CALLED DR. RAMOS BACK TO LET HIM KNOW PT HAS RETURNED. DRUG SCREEN ORDERED PER DR PHILLIPS. IV STILL INTACT RT FA. WILL FALLOW UP.
[2018-10-09 04:00] VITALS: BP 126/91
[2018-10-09 04:28] LABS: UDS - AMPHET POSITIVE QUAL (NEGATIVE); UDS - BARB NEGATIVE QUAL (NEGATIVE); UDS - BENZO POSITIVE QUAL (NEGATIVE); UDS - COCAINE NEGATIVE QUAL (NEGATIVE); UDS - OPIATE POSITIVE QUAL (NEGATIVE); UDS - PCP NEGATIVE QUAL (NEGATIVE); UDS - THC NEGATIVE QUAL (NEGATIVE)
[2018-10-09 05:08] LABS: BASOPHILS 0.3 % (0-2); EOSINOPHILS 1.2 % (0-7); HEMATOCRIT 43.1 % (42.0-54.0); HEMOGLOBIN 14.2 g/dL (13.5-17.5); IMMATURE GRANULOCYTES 0.2 % (0-5); LYMPHOCYTES 26.3 % (15-50); MCHC 32.9 g/dL (31.0-37.0); MCV 82.1 fL (80.0-100.0); MEAN PLATELET VOLUME 10.4 fL (7.4-10.4); MONOCYTES 8.8 % (2-11); NEUTROPHILS 63.2 % (40-80); PLATELET COUNT 426 10x3/uL (130-400); RBC 5.25 10x6/uL (4.20-6.10); RDW 14.4 % (11.5-14.5); WBC 10.1 10x3/uL (4.8-10.8)
[2018-10-09 05:25] LABS: ALKALINE PHOSPHATASE 158 U/L (46-116); CALCIUM 8.5 mg/dL (8.5-10.1); CARBON DIOXIDE 27.5 mmol/L (21.0-32.0); CHLORIDE - SERUM 102 mmol/L (98-107); CREATININE - SERUM 0.7 mg/dL (0.6-1.3); SODIUM 138 mmol/L (136-145); UREA NITROGEN 14 mg/dL (7-18); eGFR NON AFRICAN AMERICAN > 90 mL/min (90-120)
[2018-10-09 05:35] LABS: ALBUMIN 3.4 g/dL (3.4-5.0); ALT (SGPT) 166 U/L (10-68); CALC OSMOLALITY 275 mosm/kg (275-300); GLUCOSE 72 mg/dL (74-106); POTASSIUM - SERUM 4.1 mmol/L (3.5-5.1)
--- NOTE | 2018-10-09 05:42 | NUR ---
PT SITTING UP IN BED,NO SIGNS OF DISTRESS. ALERT AND ORIENTED. DENIES NEEDS AT THIS TIME. CL IN REACH, WILL CONTINUE MONITOR
--- NOTE | 2018-10-09 07:36 | NUR ---
notified dr pride that patient left hospital for 5 hours and came back to hospital, drug screen obtained and came back positive for meth. no new orders received
--- NOTE | 2018-10-09 07:46 | NUR ---
SPOKE WITH DR. KATZ ABOUT PT LEAVING FLOOR FOR 5 HOURS LAST NIGHT AND HAVING A POSITIVE DRUG TEST DUE TO PT HAVING SURGERY TODAY WITH GIANNA. GIANNA STATED NO SURGERY TODAY. CALLED SURGERY TO CANCEL SURGERY TODAY.
[2018-10-09 08:00] VITALS: BP 123/79
--- NOTE | 2018-10-09 08:53 | NUR ---
PATIENT SITTING ON SIDE OF BED, DEMANDING THAT NURSE BRING HIS XANAX AND PAIN MEDICATION, PATIENT IS VERY VERBALY HOSTILE WHICH INTENSIFIED AFTER PATIENT WAS INFORMED THAT HE WILL NOT BE HAVING SURGERY TODAY FOR DEBRIEDMENT OF SACRAL WOUND DUE TO LEAVING FACILITY FOR SEVERAL HOURS AND TESTING POSITIVE FOR METH AFTER RETURN. CRISTIANO STATED" I WOULD HAVE TESTED POSITIVE FOR METH BEFOR LAST NIGHT" ANXIETY AND PAIN MEDICATIONS GIVEN TO PATIENT, AND HE THREW THE MEDICATION CUP ACROSS THE ROOM. PATIENT THEN STARTED TO APPOLIGIZE FOR BEHAVIOR.
[2018-10-09 13:25] VITALS: BP 112/69
--- NOTE | 2018-10-09 15:13 | NUR ---
NUTRITION F/U PT TOLERATING REG DIET WITH GOOD INTAKE RECENT MEALS. WILL CONTINUE TO PROVIDE DIET, MONITOR PO INTAKE. RD FOLLOWING
[2018-10-09 16:30] VITALS: BP 162/97
--- NOTE | 2018-10-09 17:11 | NUR ---
PATIENT APPROACHED NURSE IN [facility] REQUESTING TO LEAVE AMA. PATIENT HAD TAKEN OUT IV HIMSELF AND REFUSED TO HAVE VELAZQUEZ CATH REMOVED. NOTIFIED DR ENZO LAMAR FOR DR CARROLL THAT PATIENT HAD LEFT AMA. ALSO NOTIFIED DISEASE MANAGEMENT NURSE
--- NOTE | 2018-10-10 14:27 | MORECARE ---
CASE MANAGEMENT DISCHARGE SUMMARY PATIENT: TAMARA RAMIREZ UNIT: [id number] ADM DATE: 10/05/18 AGE: 33 : [birth year] SEX: M ROOM/BED: D.2213 AUTHOR: HILLARY PATTON PHYSICIAN: REFERRING PHYSICIAN: MARIO CARROLL MD DATE OF SERVICE: 10/10/18 Discharge Plan Patient Name: TAMARA RAMIREZ Facility: [facility]:[place] : 1985 Planned Disposition: Inpatient Rehab Anticipated Discharge Date: Discharge Date: 10/09/2018 Expected LOS: 0 Initial Reviewer: [id number] Initial Review Date: 10/05/2018 Generated: 10/10/18 3:26 pm Comments DCP- Discharge Planning Updated by [email or web address]: Yelitza Payne on 10/08/18 11:[address] Patient Name: TAMARA RAMIREZ Admission Status: ER Accout number: [id number] Admission Date: 10-05-2018 : 1985 Admission Diagnosis:PRESSURE ULCER OF RIGHT BUTTOCK, STAGE 4 Attending: MARIO CARROLL Current LOS: 3 Anticipated DC Date: Planned Disposition: Inpatient Rehab Primary Insurance: MEDICARE A & B Discharge Planning Comments: CM met with patient to complete initial dc planning assessment. CM educated patient on the CM role and verbal consent given by patient to complete assessment. Patient lives at his mother's boyfriends home with his mom. At discharge patient would like to go to inpatient rehab. After rehab he would like to try to get assisted living. He states his mom help him and the house is safe, but would like his own. CM discussed availability of home health, rehab services, and medical equipment. Patient talked about [place] choices and he stated he would apply for that online for his brother to be his caregiver. I asked if he wanted a information on companies who also provide that care and she stated no. Patient has a wheelchair, walker, shower chair at home. He stated that he can walk, but sometimes over does it, but would like to be pushed in therapy. I spoke with Dedra in Inpatient rehab CM will continue to follow and will assist as needed with dc plans/needs. Carpenter Maintenance: Yelitza Payne DCPIA - Discharge Planning Initial Assessment Updated by [email or web address]: Yelitza Payne on 10/08/18 12:35 pm * Is the patient Alert and Oriented? Yes * How many steps to enter\exit or inside your home? * PCP NONE WAS FIRED FROM DR KERN * Pharmacy [facility] * Preadmission Environment Home with Family * ADLs Independent * Equipment Rolling Walker Shower Chair Walker Wheelchair * List name and contact numbers for known caregivers / representatives who currently or will assist patient after discharge: AZRA MORROW (MOTHER) [phone] * Verbal permission to speak to the caregivers and representatives has been obtained from the patient. N/A * Community resources currently utilized None * Additional services required to return to the preadmission environment? Yes * Can the patient safely return to the preadmission environment? Yes * Has this patient been hospitalized within the prior 30 days at any hospital? No Last DP export: 10/08/18 11:42 a Patient Name: TAMARA RAMIREZ Page 13209 at 1427 All edits/amendments must be made on the electronic document DICTATION DATE: 10/10/181425 SALESPERSON STEREO EQUIPMENT: SOLO 10/10/18 1426 RPT#: [id number] AL DATE:10/09/18 STATUS: DIS IN [facility] [address] [place] [address] END OF REPORT
== END 2018-10-09 17:49 | disposition left against medical advice (07) | DRG 593 ==
LOC: D.ER 12:01 → D.MS 20:51
PROVIDERS: Family Medicine; ADMIT Family Medicine
DX: L89.324 Pressure ulcer of left buttock, stage 4 (principal); K59.2 Neurogenic bowel, not elsewhere classified; G82.21 Paraplegia, complete; N31.9 Neuromuscular dysfunction of bladder, unspecified; B19.20 Unspecified viral hepatitis C without hepatic coma; L89.314 Pressure ulcer of right buttock, stage 4; T14.8XXS Other injury of unspecified body region, sequela

== ENCOUNTER 2019-02-08 17:38 | Inpatient (IN) | payer MEDICARE ==
[~2019-02-08] VITALS: Ht 182.9 cm; Wt 63.5 kg
[~2019-02-08 17:38] MED LIST changes: +TAMIFLU75 MG PO; +ZOFRAN ODT4 MG/UDTAB PO
[2019-02-08 18:17] LABS: APPEARANCE CLEAR (CLEAR); BASOPHILS 0.4 % (0-2); COLOR YELLOW (YELLOW); EOSINOPHILS 0.5 % (0-7); HEMATOCRIT 40.3 % (42.0-54.0); HEMOGLOBIN 13.3 g/dL (13.5-17.5); IMMATURE GRANULOCYTES 0.3 % (0-5); LYMPHOCYTES 17.6 % (15-50); MCH 26.4 pg (26.0-34.0); MCV 80.1 fL (80.0-100.0); MEAN PLATELET VOLUME 9.7 fL (7.4-10.4); MONOCYTES 9.3 % (2-11); NEUTROPHILS 71.9 % (40-80); PLATELET COUNT 460 10x3/uL (130-400); RBC 5.03 10x6/uL (4.20-6.10); RDW 15.7 % (11.5-14.5)
[2019-02-08 18:18] LABS: AMORPHOUS SEDIMENT <1+ /lpf (NONE SEEN); BACTERIA NONE SEEN /hpf (NONE SEEN); BILIRUBIN 3+ (NEGATIVE); EPITHELIAL CELLS NSEEN /hpf (0-5); GLUCOSE NEGATIVE (NEGATIVE); KETONE NEGATIVE (NEGATIVE); NITRITE POSITIVE (NEGATIVE); PROTEIN NEGATIVE (NEGATIVE); RED CELLS - URINE NONE SEEN /hpf (0-5); UROBILINOGEN NORMAL (NORMAL); WHITE CELLS - URINE NSEEN /hpf (0-5)
--- NOTE | 2019-02-08 18:21 | NUR ---
INFLUENZA SWAB COLLECTED AND WOUND ON THE RIGHT GLUEAL CULTURED.
[2019-02-08 18:25] LABS: APTT 36.3 SECONDS (22.8-39.4); INR 1.2 (0.85-1.17); PROTIME 14.7 SECONDS (11.6-15.0)
[2019-02-08 18:31] LABS: ALBUMIN 2.6 g/dL (3.4-5.0); ALKALINE PHOSPHATASE 160 U/L (46-116); ALT (SGPT) 44 U/L (10-68); BILIRUBIN - TOTAL 0.33 mg/dL (0.2-1.3); CALC OSMOLALITY 271 mosm/kg (275-300); CALCIUM 7.9 mg/dL (8.5-10.1); CARBON DIOXIDE 30.8 mmol/L (21.0-32.0); CHLORIDE - SERUM 100 mmol/L (98-107); CREATININE - SERUM 0.9 mg/dL (0.6-1.3); GLUCOSE 99 mg/dL (74-106); POTASSIUM - SERUM 3.7 mmol/L (3.5-5.1); PROTEIN - SERUM 8.2 g/dL (6.4-8.2); SODIUM 136 mmol/L (136-145); UREA NITROGEN 12 mg/dL (7-18); eGFR NON AFRICAN AMERICAN > 90 mL/min (90-120)
[2019-02-08 18:42] LABS: CKMB 0.3 U/L (0.0-3.6); CREATINE KINASE 27 UL (21-232); TROPONIN-I < 0.017 ng/mL (0.000-0.060)
--- NOTE | 2019-02-08 18:45 | NUR ---
TRINA 3.375 STARTED @ 0359
--- NOTE | 2019-02-08 19:00 | NUR ---
PT RESTING ON BED. NO S/S OF ACUTE DISTRESS NOTED. PT TEMP 102.0 AT THIS TIME.
--- NOTE | 2019-02-08 19:06 | NUR ---
PT LEFT ED VIA STRETCHER FOR CT.
--- NOTE | 2019-02-08 19:23 | NUR ---
PT RETURNED FROM CT VIA STRETCHER.
--- NOTE | 2019-02-08 19:34 | NUR ---
ZOSYN INFUSION COMPLETE AT THIS TIME.
[2019-02-08 19:48] VITALS: BP 130/66
--- NOTE | 2019-02-08 20:16 | NUR ---
PT PROVIDED SANDWICH BOX AND PUDDING PER REQUEST. PT UPDATED ON PLAN OF CARE. PT DENIES FURTHER NEEDS AT THIS TIME.
--- NOTE | 2019-02-08 21:05 | NUR ---
PT C/O PAIN TO L FOREARM AT IV SITE. REDNESS AND MILD SWELLING NOTED AT SITE. IV FLUSHED AND DISCONTINUED. ICE PACK APPLIED TO SITE.
--- NOTE | 2019-02-08 21:25 | NUR ---
RECEIVED PT FROM ER VIA STRETCHER. ABLE TO MOVE SELF FROM STRETCHER TO BED BUT IS A PARAPLEGIC. STAGE 4 WOUND NOTED TO RT BUTTOCK. FOUL ODOR NOTED WITH SEROSANGUINEOUS DRAINAGE. PT HAS NEUROGENIC BLADDER AND SELF CATHS AND HAS SUPPLIES PRESENT. SALINE LOCK NOTED TO RT HAND. V/S STABLE. ABLE TO TURN SELF IN BED. HAS HX OF MRSA AND HEP C. 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 STATES HE IS HUNGRY. PT GIVEN SANDWICH TRAY AT THIS TIME. RESP EVEN AND NONLABORED. NO DISTRESS. SR ELEVATED X2. CL IN REACH. ADMITS TO RECENT MARIJUANA AND METH USE.
[2019-02-08 22:33] VITALS: BP 105/66; BMI 19.0
--- NOTE | 2019-02-09 00:17 | NUR ---
MEPILEX BORDER DRSG APPLIED TO RT BUTTOCK STAGE 4 DECUB.
[2019-02-09 00:56] VITALS: BP 98/52
[2019-02-09 04:00] VITALS: BP 92/56
[2019-02-09 06:31] LABS: BASOPHILS 0.5 % (0-2); EOSINOPHILS 3.2 % (0-7); HEMATOCRIT 35.8 % (42.0-54.0); HEMOGLOBIN 11.4 g/dL (13.5-17.5); IMMATURE GRANULOCYTES 0.1 % (0-5); LYMPHOCYTES 37.3 % (15-50); MCH 25.8 pg (26.0-34.0); MCHC 31.8 g/dL (31.0-37.0); MEAN PLATELET VOLUME 9.7 fL (7.4-10.4); MONOCYTES 14.1 % (2-11); NEUTROPHILS 44.8 % (40-80); PLATELET COUNT 386 10x3/uL (130-400); RBC 4.42 10x6/uL (4.20-6.10); RDW 15.8 % (11.5-14.5)
[2019-02-09 06:35] LABS: WBC 7.8 10x3/uL (4.8-10.8)
[2019-02-09 06:47] LABS: CALC OSMOLALITY 283 mosm/kg (275-300); CARBON DIOXIDE 30.7 mmol/L (21.0-32.0); CHLORIDE - SERUM 108 mmol/L (98-107); CREATININE - SERUM 0.8 mg/dL (0.6-1.3); GLUCOSE 85 mg/dL (74-106); POTASSIUM - SERUM 4.3 mmol/L (3.5-5.1); SODIUM 142 mmol/L (136-145); UREA NITROGEN 17 mg/dL (7-18); eGFR NON AFRICAN AMERICAN > 90 mL/min (90-120)
--- NOTE | 2019-02-09 08:00 | NUR ---
PT AAOX4 RESP EVEN AND NONLABORED NO SIGNS OF DISTRESS REQUESTING SOMETHING FOR ANXIETY I EXSPRESSED TO THE PT THAT I WOULD CALL THE DR AND SEE IF WE WOULD GET HIS HOME MEDS RESTARTED, WILL CONTINUE TO MONITOR CL IN REACH
[2019-02-09] MEDS ORDERED: PROZAC20 MG PO (08:28)
[2019-02-09 09:25] VITALS: BP 108/64
[2019-02-09 12:32] VITALS: BP 102/57
[2019-02-09 17:39] VITALS: BP 112/66
--- NOTE | 2019-02-09 18:44 | NUR ---
I have reviewed this patient and I concur with the Shift Assessment completed by the Licensed Practical Nurse today this shift.
--- NOTE | 2019-02-09 19:30 | NUR ---
PT ALERT AND ORIENTED. TRANSPORTS BY WHEEL CHAIR. HAS DECUBITUS ON RIGHT BUTTOCKS. RIGHT HAND IV THAT IS SALINE LOCKED AT THIS TIME. INQUIRED ABOUT WHY PATIENT DOES NOT HAVE FLUIDS GOING AND PT STATES THAT HE DISCONNECTED IT WHEN ABX WERE DONE INFUSING. PT COMPLAINS OF PAIN. STATES HE WOULD LIKE PAIN MEDICINE AT THIS TIME. INFORMED PT THAT IT IS NOT DUE UNTIL LATER. PT IRRITATED WITH THIS RESPONSE. HAS CALL LIGHT IN HAND. USES WHEN IN NEED.
[2019-02-09 20:59] VITALS: BP 112/64
--- NOTE | 2019-02-10 00:59 | NUR ---
DRESSING CHANGED. NEW MEPILEX APPLIED. PT REQUESTED PAIN MEDICINE. ADMINISTERED PER ORDER. CALL LIGHT IN REACH.
[2019-02-10 02:08] VITALS: BP 113/68
[2019-02-10 05:53] VITALS: BP 110/75
[2019-02-10 06:39] LABS: BASOPHILS 0.2 % (0-2); EOSINOPHILS 4.9 % (0-7); HEMATOCRIT 37.7 % (42.0-54.0); IMMATURE GRANULOCYTES 0.1 % (0-5); LYMPHOCYTES 38.7 % (15-50); MCH 25.9 pg (26.0-34.0); MCHC 31.8 g/dL (31.0-37.0); MCV 81.4 fL (80.0-100.0); MEAN PLATELET VOLUME 9.9 fL (7.4-10.4); MONOCYTES 8.7 % (2-11); NEUTROPHILS 47.4 % (40-80); PLATELET COUNT 422 10x3/uL (130-400); RBC 4.63 10x6/uL (4.20-6.10); RDW 15.8 % (11.5-14.5)
[2019-02-10 06:50] LABS: ALBUMIN 2.1 g/dL (3.4-5.0); ALKALINE PHOSPHATASE 112 U/L (46-116); ALT (SGPT) 38 U/L (10-68); BILIRUBIN - TOTAL 0.22 mg/dL (0.2-1.3); CALCIUM 8.5 mg/dL (8.5-10.1); CARBON DIOXIDE 36.4 mmol/L (21.0-32.0); CHLORIDE - SERUM 103 mmol/L (98-107); CREATININE - SERUM 0.7 mg/dL (0.6-1.3); POTASSIUM - SERUM 4.1 mmol/L (3.5-5.1); PROTEIN - SERUM 6.9 g/dL (6.4-8.2); SODIUM 141 mmol/L (136-145); eGFR NON AFRICAN AMERICAN > 90 mL/min (90-120)
[2019-02-10 07:20] LABS: CALC OSMOLALITY 277 mosm/kg (275-300); GLUCOSE 70 mg/dL (74-106); UREA NITROGEN 11 mg/dL (7-18)
[2019-02-10 09:00] VITALS: BP 113/67
--- NOTE | 2019-02-10 10:00 | NUR ---
PATIENT OUT OF BED AND WENT BY WHEELCHAIR AND OUTSIDE WITH SISTER. DILAUDID GIVEN FOR PAIN. DRESSING C/D/I.
[2019-02-10 10:10] VITALS: BMI 19.0
--- NOTE | 2019-02-10 11:23 | NUR ---
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 He states he has had it for 4 years. Wound bed is pink/red, no odor, no necrotic tissue noted. Measurements are 8cm x 8cm x 3cm x 3.3cm @ 6 oclock. He states he has been using silver alginate dressings. He says he does his own dressing changes. Recommendations: Continue using calcium alginate with silver for wound care, daily dressing changes, position self off of right buttock while in bed, air overlay mattress. Pt stated he knew in order for wound to heal he needed to increase his protein and he needed to reduce the pressure from the site. He also stated he needs placement for wound care. As per pt he plans to discuss this with case management. Wound care will monitor.
[2019-02-10 13:45] VITALS: BP 104/57
[2019-02-10 15:46] LABS: % SATURATION 12 % (15-55); IRON 27 ug/dl (35-150); TOTAL IRON BIND CAPACITY 220 ug/dl (260-445); UNSAT IRON BIND CAPACITY 193 ug/dl (150-375)
[2019-02-10 16:06] VITALS: Ht 182.9 cm; Wt 63.5 kg
[2019-02-10 16:43] VITALS: BP 112/60
[2019-02-10 20:00] VITALS: BP 99/59
--- NOTE | 2019-02-10 20:51 | NUR ---
REC'D CHGE. OF SHIFT IN BED LYING ON LEFT SIDE EYES CLOSED RESP. DEEP AND EVEN.WILL CONTINUE TO MONITOR FOR ANY NEW CHGES AND FOLLOW CURRENT PLAN OF CARE.
[2019-02-11] VITALS: BP 115/60
[2019-02-11 04:00] VITALS: BP 93/56
--- NOTE | 2019-02-11 05:21 | NUR ---
I have reviewed this patient and I concur with the Shift Assessment completed by the Licensed Practical Nurse today this shift.
[2019-02-11 05:45] LABS: BASOPHILS 0.4 % (0-2); EOSINOPHILS 7.2 % (0-7); HEMATOCRIT 36.6 % (42.0-54.0); HEMOGLOBIN 11.6 g/dL (13.5-17.5); IMMATURE GRANULOCYTES 0.1 % (0-5); LYMPHOCYTES 44.2 % (15-50); MCHC 31.7 g/dL (31.0-37.0); MCV 82.1 fL (80.0-100.0); MEAN PLATELET VOLUME 9.7 fL (7.4-10.4); MONOCYTES 9.6 % (2-11); NEUTROPHILS 38.5 % (40-80); PLATELET COUNT 405 10x3/uL (130-400); RBC 4.46 10x6/uL (4.20-6.10); RDW 15.8 % (11.5-14.5); WBC 6.7 10x3/uL (4.8-10.8)
[2019-02-11 06:13] LABS: ALBUMIN 2.1 g/dL (3.4-5.0); ALKALINE PHOSPHATASE 110 U/L (46-116); ALT (SGPT) 40 U/L (10-68); BILIRUBIN - TOTAL 0.19 mg/dL (0.2-1.3); CALC OSMOLALITY 276 mosm/kg (275-300); CALCIUM 8.4 mg/dL (8.5-10.1); CARBON DIOXIDE 34.8 mmol/L (21.0-32.0); CHLORIDE - SERUM 103 mmol/L (98-107); CREATININE - SERUM 0.8 mg/dL (0.6-1.3); GLUCOSE 86 mg/dL (74-106); POTASSIUM - SERUM 4.3 mmol/L (3.5-5.1); PROTEIN - SERUM 6.7 g/dL (6.4-8.2); SODIUM 140 mmol/L (136-145); UREA NITROGEN 10 mg/dL (7-18); eGFR NON AFRICAN AMERICAN > 90 mL/min (90-120)
[2019-02-11 09:00] VITALS: BP 105/71; BP 172/88
--- NOTE | 2019-02-11 09:30 | NUR ---
PATIENT RESTING IN BED, WOUND CARE DONE PER ORDERS TO RIGHT BUTTOCK. WOUND BED IS PINK WITH NO NECROTIC AREAS.
[2019-02-11 11:14] LABS: FOLATE (FOLIC ACID) - SERUM 10.5 ng/mL (>3.0)
[2019-02-11 12:00] VITALS: BP 103/56
--- NOTE | 2019-02-11 15:09 | MORECARE ---
CASE MANAGEMENT DISCHARGE SUMMARY PATIENT: TAMARA RAMIREZ UNIT: [id number] ADM DATE: 02/08/19 AGE: 33 : 84 SEX: M ROOM/BED: D.2235 AUTHOR: HILLARY PATTON PHYSICIAN: REFERRING PHYSICIAN: VALENTINA GRECO MD DATE OF SERVICE: 02/11/19 Discharge Plan Patient Name: TAMARA RAMIREZ Facility: [facility]:[place] : 1985 Planned Disposition: Longterm Facility Anticipated Discharge Date: Discharge Date: Expected LOS: Initial Reviewer: [email or web address] Initial Review Date: 02/11/2019 Generated: 02/11/19 4:08 pm DCPIA - Discharge Planning Initial Assessment Updated by [id number]: Carol Trent on 02/11/19 3:08 pm * Is the patient Alert and Oriented? Yes * PCP [facility] in [place] - Dr. Vides He see's Elaine * Pharmacy [facility] in [place] * Preadmission Environment Home with Family * ADLs Partial Dependent * Partial ADLs (Assistance needed) Ambulation * Equipment Rolling Walker Shower Chair Wheelchair * List name and contact numbers for known caregivers / representatives who currently or will assist patient after discharge: Shelby Archibald - [facility] - [phone] * Verbal permission to speak to the caregivers and representatives has been obtained from the patient. Yes * Community resources currently utilized None * Additional services required to return to the preadmission environment? No * Can the patient safely return to the preadmission environment? No * Has this patient been hospitalized within the prior 30 days at any hospital? No External Providers [facility] Contact Date: Service Request Date: Service Type: Resolution: Reviewer: Comments: Patient Name: TAMARA RAMIREZ Page [id number] at 1509 All edits/amendments must be made on the electronic document DICTATION DATE: 02/11/19 1508 TOPOLOGY TEACHER: SOLO 02/11/19 1508 RPT#: [id number] DC DATE: STATUS: ADM IN [facility] [address] [place] [address] END OF REPORT
--- NOTE | 2019-02-11 15:19 | MORECARE ---
CASE MANAGEMENT DISCHARGE SUMMARY PATIENT: TAMARA RAMIREZ UNIT: [id number] ADM DATE: 02/08/19 AGE: 33 : 84 SEX: M ROOM/BED: D.2235 AUTHOR: POOJA,DOC PHYSICIAN: REFERRING PHYSICIAN: VALENTINA GRECO MD DATE OF SERVICE: 02/11/19 Discharge Plan Patient Name: TAMARA RAMIREZ Facility: [facility]:[place] : 1985 Planned Disposition: Fdc Facility Anticipated Discharge Date: Discharge Date: Expected LOS: Initial Reviewer: [email or web address] Initial Review Date: 02/11/2019 Generated: 02/11/19 4:18 pm Comments DCP- Discharge Planning Updated by [id number]: Carol Trent on 02/11/19 2:[address] Patient Name: TAMARA RAMIREZ Admission Status: ER Accout number: [id number] Admission Date: 02-08-2019 : 1985 Admission Diagnosis:PRESSURE ULCER OF RIGHT BUTTOCK, STAGE 4 Attending: SHANTI Current LOS: 3 Anticipated DC Date: Planned Disposition: Fdc Facility Primary Insurance: MEDICARE A & B Discharge Planning Comments: CM met with patient to complete initial dc planning assessment. CM educated patient on the CM role and verbal consent given by patient to complete assessment. Patient has been living with his mother and mother's boyfriend, states "they broke up and he cannot return there". CM discussed availability of home health, rehab services, and medical equipment. Patient states he would like a referral to [facility] in [place]. States he knows someone that works there. I called [facility] and spoke to Risa and clinical faxed per request. CM will continue to follow and will assist as needed with dc plans/needs. [facility]: Phone - [phone] Fax - [phone] Animation Camera Operator: Carol Trent DCPIA - Discharge Planning Initial Assessment Updated by [email or web address]: Carol Trnet on 02/11/19 3:08 pm * Is the patient Alert and Oriented? Yes * PCP [facility] in [place] - Dr. Vides He see's Elaine * Pharmacy [facility] in [place] * Preadmission Environment Home with Family * ADLs Partial Dependent * Partial ADLs (Assistance needed) Ambulation * Equipment Rolling Walker Shower Chair Wheelchair * List name and contact numbers for known caregivers / representatives who currently or will assist patient after discharge: Shelby Archibald - mother - [phone] * Verbal permission to speak to the caregivers and representatives has been obtained from the patient. Yes * Community resources currently utilized None * Additional services required to return to the preadmission environment? No * Can the patient safely return to the preadmission environment? No * Has this patient been hospitalized within the prior 30 days at any hospital? No Coverage Notice Reviewer: [id number] Virgil Trent Notice Issued Date-Time: 02/11/2019 15:11 Notice Type: Patient Choice Letter Notice Delivered To: Patient Relationship to Patient: Self Office Manager Executive Assistant Name: Delivery Method: HAND - Hand Delivered Dinah Days: Prior Verbal Notification: Recipient Understood Notice: Yes Recipient Signature: Yes Med Rec Note Co-signed by Attending: Coverage Notice Comment: RADHA for [facility] Last DP export: 02/11/19 2:08 pm Patient Name: TAMARA RAMIREZ Page [id number] at 1519 All edits/amendments must be made on the electronic document DICTATION DATE: 02/11/191517 WATER QUALITY CONTROL ENGINEER: SOLO 02/11/191517 RPT#: [id number] DC DATE: STATUS: ADM IN [facility] [address] [place] [address] END OF REPORT
[2019-02-11 17:06] VITALS: BP 97/56
--- NOTE | 2019-02-11 17:30 | NUR ---
REPORT RECIEVED AND ROUNDING COMPLETE. PATIENT LAYING IN BED WITH HOB ELEVATED 40%. PATIENT VISITING WITH HIS MOTHER. PATIENT ASKING ABOUT PAIN MEDICATIONS, PATIENT STATES THAT SAID HE WOULD PUT IN A NEW DOSAGE. PATIENT HAS A RIGHT PIV WITH LR @ [facility], NO S/SX OF INFILTRATION OR INFECTION. PATIENT STATES HE WOULD LIKE PAIN MEDICATIONS WITH NIGHT MEDS. PATIENT STATES NO OTHER NEEDS AT THIS TIME. CALL LIGHT WITHIN REACH AND BED IN LOWEST POSITION.
[2019-02-11 21:07] VITALS: BP 108/59
--- NOTE | 2019-02-12 00:17 | NUR ---
I have reviewed this patient and I concur with the Shift Assessment completed by the Licensed Practical Nurse today this shift.
[2019-02-12 01:00] VITALS: BP 114/71
[2019-02-12 05:02] VITALS: BP 91/61
[2019-02-12 06:27] LABS: BASOPHILS 0.7 % (0-2); HEMATOCRIT 36.1 % (42.0-54.0); HEMOGLOBIN 11.5 g/dL (13.5-17.5); IMMATURE GRANULOCYTES 0.3 % (0-5); LYMPHOCYTES 47.2 % (15-50); MCH 26.1 pg (26.0-34.0); MCHC 31.9 g/dL (31.0-37.0); MCV 81.9 fL (80.0-100.0); MEAN PLATELET VOLUME 9.4 fL (7.4-10.4); MONOCYTES 9.3 % (2-11); NEUTROPHILS 36.5 % (40-80); PLATELET COUNT 392 10x3/uL (130-400); RBC 4.41 10x6/uL (4.20-6.10); RDW 15.8 % (11.5-14.5)
[2019-02-12 06:54] LABS: ALBUMIN 2.1 g/dL (3.4-5.0); ALKALINE PHOSPHATASE 102 U/L (46-116); ALT (SGPT) 44 U/L (10-68); BILIRUBIN - TOTAL 0.12 mg/dL (0.2-1.3); CALC OSMOLALITY 277 mosm/kg (275-300); CALCIUM 8.1 mg/dL (8.5-10.1); CARBON DIOXIDE 33.8 mmol/L (21.0-32.0); CHLORIDE - SERUM 105 mmol/L (98-107); CREATININE - SERUM 0.8 mg/dL (0.6-1.3); GLUCOSE 91 mg/dL (74-106); POTASSIUM - SERUM 4.3 mmol/L (3.5-5.1); PROTEIN - SERUM 6.7 g/dL (6.4-8.2); SODIUM 140 mmol/L (136-145); UREA NITROGEN 10 mg/dL (7-18); eGFR NON AFRICAN AMERICAN > 90 mL/min (90-120)
[2019-02-12 09:10] VITALS: BP 105/53
--- NOTE | 2019-02-12 09:30 | NUR ---
PATIENT WENT OFF FLOOR. REQUESTED A "SMOKE" I TOLD HIM I HAD NONE. WCTM
[2019-02-12 13:24] VITALS: BP 101/52
--- NOTE | 2019-02-12 14:00 | NUR ---
NUTRITION F/U CHART REVIEWED, PT NOW IN ISOLATION. TOLERATING REG DIET WITH 100% INTAKE RECENT MEALS. WILL CONTINUE TO PROVIDE DIET, HONOR FOOD PREFERENCES. RD FOLLOWING
--- NOTE | 2019-02-12 14:21 | NUR ---
PATIENT WANTED ME TO TURN UP THE VANC. I EXPLAINED TO HIM I COULD NOT. DID NOT WANT TO CAUSE YARA SYNDROME. HE VOICED UNDERSTANDING. WANTS TO GO SMOKE. CL IN REACH. WCTM
--- NOTE | 2019-02-12 16:55 | NUR ---
PATIENT DRESSING CHANGE COMPLETED. DENIES PAIN. SKIN IS WNL. DENIES NEEDS AT THIS TIME. WANTS TO GET OUT OF BED AND ROAM. EDUCATED THAT HE NEEDED TO WEAR THE ISOLATION GOWN AND GLOVES. CL IN REACH. MOM IN ROOM
--- NOTE | 2019-02-12 17:01 | MORECARE ---
CASE MANAGEMENT DISCHARGE SUMMARY PATIENT: TAMARA RAMIREZ UNIT: [id number] ADM DATE: 02/08/19 AGE: 33 : 83 SEX: M ROOM/BED: D.2235 AUTHOR: POOJA,DOC PHYSICIAN: REFERRING PHYSICIAN: VALENTINA GRECO MD DATE OF SERVICE: 02/12/19 Discharge Plan Patient Name: TAMARA RAMIREZ Facility: [facility]:[place] : 1985 Planned Disposition: Fpc Facility Anticipated Discharge Date: Discharge Date: Expected LOS: Initial Reviewer: [email or web address] Initial Review Date: 02/11/2019 Generated: 02/12/19 6:01 pm Comments DCP- Discharge Planning Updated by [email or web address]: Carol Trent on 02/12/19 4:[address] Received an order for LTACH eval. The patient is not in the room. I called Mae Hoffmann here in [facility]. She will come on Sunday for face to face and states she will get paperwork Sunday morning. CM will continue to follow and assist with discharge planning/needs. DCP- Discharge Planning Updated by [id number]: Carol Trent on 02/11/19 2:[address] Patient Name: TAMARA RAMIREZ Admission Status: ER Accout number: [id number] Admission Date: 02-08-2019 : 1985 Admission Diagnosis:PRESSURE ULCER OF RIGHT BUTTOCK, STAGE 4 Attending: SHANTI Current LOS: 3 Anticipated DC Date: Planned Disposition: Fpc Facility Primary Insurance: MEDICARE A & B Discharge Planning Comments: CM met with patient to complete initial dc planning assessment. CM educated patient on the CM role and verbal consent given by patient to complete assessment. Patient has been living with his mother and mother's boyfriend, states "they broke up and he cannot return there". CM discussed availability of home health, rehab services, and medical equipment. Patient states he would like a referral to [facility] in [place]. States he knows someone that works there. I called [facility] and spoke to Risa and clinical faxed per request. CM will continue to follow and will assist as needed with dc plans/needs. [facility]: Phone - [phone] Fax - [phone] Surface Plate Finisher: Carol Miley DCPIA - Discharge Planning Initial Assessment Updated by [id number]: Carol Trent on 02/11/19 3:08 pm * Is the patient Alert and Oriented? Yes * PCP [facility] in [place] - Dr. Vides He see's Elaine * Pharmacy [facility] in [place] * Preadmission Environment Home with Family * ADLs Partial Dependent * Partial ADLs (Assistance needed) Ambulation * Equipment Rolling Walker Shower Chair Wheelchair * List name and contact numbers for known caregivers / representatives who currently or will assist patient after discharge: Shelby Archibald - mother - [phone] * Verbal permission to speak to the caregivers and representatives has been obtained from the patient. Yes * Community resources currently utilized None * Additional services required to return to the preadmission environment? No * Can the patient safely return to the preadmission environment? No * Has this patient been hospitalized within the prior 30 days at any hospital? No Coverage Notice Reviewer: [id number] - Carol Trent Notice Issued Date-Time: 02/11/2019 15:11 Notice Type: Patient Choice Letter Notice Delivered To: Patient Relationship to Patient: Self Post Closer Name: Delivery Method: HAND - Hand Delivered Dinah Days: Prior Verbal Notification: Recipient Understood Notice: Yes Recipient Signature: Yes Med Rec Note Co-signed by Attending: Coverage Notice Comment: RADHA for [facility] Last DP export: 02/11/19 2:18 pm Patient Name: TAMARA RAMIREZ Page [id number] at 1701 All edits/amendments must be made on the electronic document DICTATION DATE: 02/12/19 170 IMPREGNATING TANK OPERATOR: SOLO 02/12/191700 RPT#: [id number] DC DATE: STATUS: ADM IN [facility] [address] [place] [address] END OF REPORT
[2019-02-12 20:00] VITALS: BP 123/65
--- NOTE | 2019-02-12 21:06 | NUR ---
PT ALERT X 4. BREATH SOUNDS CLEAR BILAT. IV TO RIGHT FOREARM, PATENT, DRESSING CDI. DRESSING TO RIGHT BUTTOCKS CDI. PT REPORTING PAIN 8/10, MEDICATED PER ORDERS, WILL MONITOR. BED LOW, CALL LIGHT IN REACH. NO OTHER NEEDS AT THIS TIME.
[2019-02-13 04:00] VITALS: BP 92/56
[2019-02-13 07:28] LABS: BASOPHILS 0.2 % (0-2); EOSINOPHILS 3.3 % (0-7); HEMATOCRIT 38.1 % (42.0-54.0); HEMOGLOBIN 12.1 g/dL (13.5-17.5); IMMATURE GRANULOCYTES 0.2 % (0-5); MCHC 31.8 g/dL (31.0-37.0); MCV 81.8 fL (80.0-100.0); MEAN PLATELET VOLUME 9.7 fL (7.4-10.4); MONOCYTES 7.7 % (2-11); NEUTROPHILS 71.6 % (40-80); PLATELET COUNT 407 10x3/uL (130-400); RBC 4.66 10x6/uL (4.20-6.10); RDW 16.1 % (11.5-14.5)
[2019-02-13 07:31] LABS: WBC 10.7 10x3/uL (4.8-10.8)
[2019-02-13 07:52] LABS: ALBUMIN 2.2 g/dL (3.4-5.0); ALKALINE PHOSPHATASE 107 U/L (46-116); ALT (SGPT) 52 U/L (10-68); BILIRUBIN - TOTAL 0.19 mg/dL (0.2-1.3); CALC OSMOLALITY 273 mosm/kg (275-300); CARBON DIOXIDE 31.8 mmol/L (21.0-32.0); CHLORIDE - SERUM 102 mmol/L (98-107); CREATININE - SERUM 0.8 mg/dL (0.6-1.3); GLUCOSE 80 mg/dL (74-106); POTASSIUM - SERUM 4.2 mmol/L (3.5-5.1); SODIUM 138 mmol/L (136-145); UREA NITROGEN 10 mg/dL (7-18); eGFR NON AFRICAN AMERICAN > 90 mL/min (90-120)
--- NOTE | 2019-02-13 08:13 | NUR ---
PT IS RESTING IN BED WITH EYES CLOSED. RESPIRATIONS ARE EVEN AND UNLABORED. PT IS EASILY AROUSED WITH VERBAL STIMULATION. PT WITH PRESSURE SORE TO RIGHT BUTTOCKS. DRESSING IS C/D/I. PT IS ABLE TO REPOSITION SELF. PT IS ON FIRST STEP OVERLAY MATTRESS. PT WHEELCHAIR IS WITHIN REACH. PT DENIES PRESENCE OF DYSPNEA/N/V. BED IS IN THE LOWEST POSITION. CALL LIGHT AND BEDSIDE TABLE ARE WITHIN REACH. SIDE RAILS X 2. PT DENIES FURTHER NEEDS. WILL CONT TO MONITOR.
[2019-02-13 14:10] VITALS: BP 112/69
[2019-02-13 20:00] VITALS: BP 104/50
[2019-02-14] VITALS: BP 92/65
--- NOTE | 2019-02-14 01:01 | NUR ---
PT RESTING IN BED. EYES CLOSED. NO SINGS OF DISTRESS. BREATHING EVEN AND UNLABORED. IV LT FA DRESSING CLEAN DRY AND INTACT. 1ST STEP OVERLAY BED. BED LOWERED AND LOCKED. CALL LIGHT IN REACH. WILL CONTINUE PLAN OF CARE.
[2019-02-14 04:00] VITALS: BP 108/59
--- NOTE | 2019-02-14 06:32 | NUR ---
I have reviewed this patient and I concur with the Shift Assessment completed by the Licensed Practical Nurse today this shift.
[2019-02-14 06:48] LABS: ALBUMIN 2.3 g/dL (3.4-5.0); ALKALINE PHOSPHATASE 115 U/L (46-116); ALT (SGPT) 57 U/L (10-68); BILIRUBIN - TOTAL 0.15 mg/dL (0.2-1.3); CALC OSMOLALITY 282 mosm/kg (275-300); CARBON DIOXIDE 32.9 mmol/L (21.0-32.0); CHLORIDE - SERUM 103 mmol/L (98-107); CREATININE - SERUM 0.8 mg/dL (0.6-1.3); GLUCOSE 94 mg/dL (74-106); POTASSIUM - SERUM 3.8 mmol/L (3.5-5.1); PROTEIN - SERUM 7.1 g/dL (6.4-8.2); SODIUM 142 mmol/L (136-145); UREA NITROGEN 12 mg/dL (7-18); eGFR NON AFRICAN AMERICAN > 90 mL/min (90-120)
[2019-02-14 07:15] LABS: HEMATOCRIT 37.7 % (42.0-54.0); HEMOGLOBIN 11.7 g/dL (13.5-17.5); IMMATURE GRANULOCYTES 0.2 % (0-5); MCH 25.9 pg (26.0-34.0); MCV 83.4 fL (80.0-100.0); MEAN PLATELET VOLUME 9.7 fL (7.4-10.4); PLATELET COUNT 409 10x3/uL (130-400); RBC 4.52 10x6/uL (4.20-6.10); RDW 16.2 % (11.5-14.5)
[2019-02-14 07:21] LABS: WBC 5.8 10x3/uL (4.8-10.8)
[2019-02-14 08:29] VITALS: BP 148/88
--- NOTE | 2019-02-14 09:00 | NUR ---
ALERT AND ORIENTED X4. DRESSING INTACT TO BUTTOCK WITH CONTINUED CONTACT ISOLATION. LIMITED ROM TO BLE DUE TO BILATERAL LOWER PARESIS WITH PEDAL PULSES NOTED. IVF INFUSING AT PRESCRIBED RATE. INSTRUCTED ON NEED FOR STOOL SPECIMEN. LUNGS CTA WITH ABD. SOFT WITH BS NOTED. ENCOURAGED TO USE CALL LIGHT FOR ASSIST.
[2019-02-14 10:42] LABS: ANISOCYTOSIS OCC; EOSINOPHILS 7 % (0-7); LYMPHOCYTES 49 % (15-50); MONOCYTES 6 % (2-11); NEUTROPHILS 38 % (40-80); PLATELET ESTIMATE INCREASED; ROULEAUX OCC
[2019-02-14] MEDS ORDERED: ZOSYN 3.3753.375 G1 IV (12:23)
[2019-02-14] MEDS ORDERED: VANCOMYCIN 750750 MG IV (12:25)
--- NOTE | 2019-02-14 12:54 | MORECARE ---
CASE MANAGEMENT DISCHARGE SUMMARY PATIENT: TAMARA RAMIREZ UNIT: [id number] ADM DATE: 02/08/19 AGE: 33 : 83 SEX: M ROOM/BED: D.2235 AUTHOR: POOJA,DOC PHYSICIAN: REFERRING PHYSICIAN: VALENTINA GRECO MD DATE OF SERVICE: 02/14/19 Discharge Plan Patient Name: TAMARA RAMIREZ Facility: [facility]:[place] : 1985 Planned Disposition: Residential Facility Anticipated Discharge Date: Discharge Date: Expected LOS: Initial Reviewer: [id number] Initial Review Date: 02/11/2019 Generated: 02/14/19 1:54 pm Comments DCP- Discharge Planning Updated by [email or web address]: Carol Trent on 02/14/19 11:[address] I spoke with the patient, he is wanting to discharge to [facility] in [place]. I informed Mae, they will accept with to room 314, Dr. Woodall to accept. I informed primary nurse (Rene) to call report to [phone]. Patient and family in agreement to discharge today to LTACH. I spoke with Risa at [facility] and informed her that he is discharging today to LTACH. DCP- Discharge Planning Updated by [id number]: Carol Trent on 02/12/19 4:[address] Received an order for LTACH eval. The patient is not in the room. I called Mae at [facility] here in [facility]. She will come on Sunday for face to face and states she will get paperwork Sunday morning. CM will continue to follow and assist with discharge planning/needs. DCP- Discharge Planning Updated by [id number]: Carol Trent on 02/11/19 2:[address] Patient Name: TAMARA RAMIREZ Admission Status: ER Accout number: [id number] Admission Date: 02-08-2019 : 1985 Admission Diagnosis:PRESSURE ULCER OF RIGHT BUTTOCK, STAGE 4 Attending: SHANTI Current LOS: 3 Anticipated DC Date: Planned Disposition: Residential Facility Primary Insurance: MEDICARE A & B Discharge Planning Comments: CM met with patient to complete initial dc planning assessment. CM educated patient on the CM role and verbal consent given by patient to complete assessment. Patient has been living with his mother and mother's boyfriend, states "they broke up and he cannot return there". CM discussed availability of home health, rehab services, and medical equipment. Patient states he would like a referral to [facility] in [place]. States he knows someone that works there. I called [facility] and spoke to Risa and clinical faxed per request. CM will continue to follow and will assist as needed with dc plans/needs. Rosio Gatica: Phone - [phone] Fax - [phone] Pipe Insulator Helper: Carol Trent DCPIA - Discharge Planning Initial Assessment Updated by [email or web address]: Carol Trent on 02/11/19 3:08 pm * Is the patient Alert and Oriented? Yes * PCP [facility] in [place] - Dr. Vides He see's Elaine * Pharmacy [facility] in [place] * Preadmission Environment Home with Family * ADLs Partial Dependent * Partial ADLs (Assistance needed) Ambulation * Equipment Rolling Walker Shower Chair Wheelchair * List name and contact numbers for known caregivers / representatives who currently or will assist patient after discharge: Shelby Archibald - mother - [phone] * Verbal permission to speak to the caregivers and representatives has been obtained from the patient. Yes * Community resources currently utilized None * Additional services required to return to the preadmission environment? No * Can the patient safely return to the preadmission environment? No * Has this patient been hospitalized within the prior 30 days at any hospital? No Coverage Notice Reviewer: [id number] Virgil Trent Notice Issued Date-Time: 02/11/2019 15:11 Notice Type: Patient Choice Letter Notice Delivered To: Patient Relationship to Patient: Self Special Education Tutor Name: Delivery Method: HAND - Hand Delivered Dinah Days: Prior Verbal Notification: Recipient Understood Notice: Yes Recipient Signature: Yes Med Rec Note Co-signed by Attending: Coverage Notice Comment: RADHA for [facility]io Gatica Reviewer: [id number] Virgil Trent Notice Issued Date-Time: 02/14/2019 12:40 Notice Type: IM Discharge Notice Notice Delivered To: Patient Relationship to Patient: Self Special Education Tutor Name: Delivery Method: HAND - Hand Delivered Dinah Days: Prior Verbal Notification: Recipient Understood Notice: Yes Recipient Signature: Yes Med Rec Note Co-signed by Attending: Coverage Notice Comment: IMM explained, signed, given, copy placed in MR Last DP export: 02/12/19 4:01 pm Patient Name: TAMARA RAMIREZ Page 01189 at 1254 All edits/amendments must be made on the electronic document DICTATION DATE: 02/14/19 125 SUPPLY CHAIN CONSULTANT: SOLO 02/14/19 1253 RPT#: [id number] DC DATE: STATUS: ADM IN [facility] [address] [place] [address] END OF REPORT
[2019-02-14 13:32] VITALS: BP 150/93
--- NOTE | 2019-02-14 14:55 | NUR ---
DISCHARGE INSTRUCTIONG GIVEN TO PATIENT AND REPORT CALLED TO [facility] AND VERBALIZED UNDERSTANDING. AMBULANCE CALLED AND STABLE. IV INTACT TO RT. WRIST.
--- NOTE | 2019-02-14 16:09 | NUR ---
PT NOW REFUSING TO LEAVE WITH CASE CHILD CARE DIRECTOR WITH [facility] AT THIS TIME.
--- NOTE | 2019-02-14 16:39 | NUR ---
PT LEFT FLOOR WITHOUT NOTIFICATION WITH ITEMS IN HAND STATED WAS GOING TO RETURN TO FLOOR. PT. DISCHARGING HOME AFTER EDUCATION OR BENEFITS OT LTAC VERSUS HOME. PT LEFT PRIOR TO DRESSING CHANGE TO BUTTOCK STATED WOULD CHANGE IT HIMSELF. IV DISCONTINUED.
[2019-02-14 17:07] LABS: AEROBE ID Final report (())
--- NOTE | 2019-02-14 18:34 | MORECARE ---
CASE MANAGEMENT DISCHARGE SUMMARY PATIENT: TAMARA RAMIREZ UNIT: [id number] ADM DATE: 02/08/19 AGE: 33 : 83 SEX: M ROOM/BED: D.2235 AUTHOR: POOJA,DOC PHYSICIAN: REFERRING PHYSICIAN: VALENTINA GRECO MD DATE OF SERVICE: 02/14/19 Discharge Plan Patient Name: TAMARA RAMIREZ Facility: [facility]:[place] : 1985 Planned Disposition: Half-Way Facility Anticipated Discharge Date: Discharge Date: 02/14/2019 Expected LOS: Initial Reviewer: [email or web address] Initial Review Date: 02/11/2019 Generated: 02/14/19 7:34 pm Comments DCP- Discharge Planning Updated by [email or web address]: Carol Trent on 02/14/19 11:[address] I spoke with the patient, he is wanting to discharge to [facility] in [place]. I informed Mae, they will accept with to room 314, Dr. Woodall to accept. I informed primary nurse (Rene) to call report to [phone]. Patient and family in agreement to discharge today to LTACH. I spoke with Risa at [facility] and informed her that he is discharging today to LTACH. DCP- Discharge Planning Updated by [email or web address]: Carol Trent on 02/12/19 4:[address] Received an order for LTACH eval. The patient is not in the room. I called Mae at [facility] here in [facility]. She will come on Sunday for face to face and states she will get paperwork Sunday morning. CM will continue to follow and assist with discharge planning/needs. DCP- Discharge Planning Updated by [email or web address]: Carol Trent on 02/11/19 2:[address] Patient Name: TAMARA RAMIREZ Admission Status: ER Accout number: [id number] Admission Date: 02-08-2019 : 1985 Admission Diagnosis:PRESSURE ULCER OF RIGHT BUTTOCK, STAGE 4 Attending: SHANTI Current LOS: 3 Anticipated DC Date: Planned Disposition: Half-Way Facility Primary Insurance: MEDICARE A & B Discharge Planning Comments: CM met with patient to complete initial dc planning assessment. CM educated patient on the CM role and verbal consent given by patient to complete assessment. Patient has been living with his mother and mother's boyfriend, states "they broke up and he cannot return there". CM discussed availability of home health, rehab services, and medical equipment. Patient states he would like a referral to [facility] in [place]. States he knows someone that works there. I called [facility] and spoke to Risa and clinical faxed per request. CM will continue to follow and will assist as needed with dc plans/needs. [facility]: Phone - [phone] Fax - [phone] Slicing Machine Tender: Carol Trent DCPIA - Discharge Planning Initial Assessment Updated by [email or web address]: Carol Trent on 02/11/19 3:08 pm * Is the patient Alert and Oriented? Yes * PCP [facility] in [place] - Dr. Vides He see's Elaine * Pharmacy [facility] in [place] * Preadmission Environment Home with Family * ADLs Partial Dependent * Partial ADLs (Assistance needed) Ambulation * Equipment Rolling Walker Shower Chair Wheelchair * List name and contact numbers for known caregivers / representatives who currently or will assist patient after discharge: Shelby Archibald - mother - [phone] * Verbal permission to speak to the caregivers and representatives has been obtained from the patient. Yes * Community resources currently utilized None * Additional services required to return to the preadmission environment? No * Can the patient safely return to the preadmission environment? No * Has this patient been hospitalized within the prior 30 days at any hospital? No Coverage Notice Reviewer: [email or web address] Virgil Trent Notice Issued Date-Time: 02/11/2019 15:11 Notice Type: Patient Choice Letter Notice Delivered To: Patient Relationship to Patient: Self Certified Hyperbaric Technician Name: Delivery Method: HAND - Hand Delivered Dinah Days: Prior Verbal Notification: Recipient Understood Notice: Yes Recipient Signature: Yes Med Rec Note Co-signed by Attending: Coverage Notice Comment: RADHA for Rosio Gatica Reviewer: [email or web address] Virgil Trent Notice Issued Date-Time: 02/14/2019 12:40 Notice Type: IM Discharge Notice Notice Delivered To: Patient Relationship to Patient: Self Certified Hyperbaric Technician Name: Delivery Method: HAND - Hand Delivered Dinah Days: Prior Verbal Notification: Recipient Understood Notice: Yes Recipient Signature: Yes Med Rec Note Co-signed by Attending: Coverage Notice Comment: IMM explained, signed, given, copy placed in MR Last DP export: 02/14/19 11:54 am Patient Name: TAMARA RAMIREZ Page [id number] at 1834 All edits/amendments must be made on the electronic document DICTATION DATE: 02/14/191833 SLOPE RUNNER: SOLO 02/14/191833 RPT#: [id number] DC DATE:02/14/19 STATUS: DIS IN [facility] [address] [place] [address] END OF REPORT
== END 2019-02-14 16:45 | disposition short-term general hospital (02) | DRG 871 ==
LOC: D.ER 17:38 → D.MS 20:46
PROVIDERS: Family Medicine; Internal Medicine Nephrology; ADMIT Family Medicine; ATTEND Family Medicine
DX: A41.9 Sepsis, unspecified organism (principal); L89.314 Pressure ulcer of right buttock, stage 4; L03.317 Cellulitis of buttock; G82.20 Paraplegia, unspecified; N39.0 Urinary tract infection, site not specified; F17.213 Nicotine dependence, cigarettes, with withdrawal; K59.2 Neurogenic bowel, not elsewhere classified; T14.8XXS Other injury of unspecified body region, sequela; E86.0 Dehydration

== ENCOUNTER → 2019-07-07 20:58 | Outpatient (CLI) | payer MEDICARE ==
[2019-02-10 16:06] VITALS: BMI 19.0
[~2019-07-07 20:58] MED LIST changes: +PROZAC20 MG PO; +VANCOMYCIN 750750 MG IV; +ZOSYN 3.3753.375 G1 IV
[2019-07-07 21:37] LABS: APPEARANCE HAZY (CLEAR); BACTERIA MANY /hpf (NEGATIVE); BILIRUBIN NEGATIVE (NEGATIVE); COLOR YELLOW (YELLOW); GLUCOSE NEGATIVE (NEGATIVE); KETONE NEGATIVE (NEGATIVE); NITRITE NEGATIVE (NEGATIVE); PROTEIN NEGATIVE (NEGATIVE); RED CELLS - URINE OCC /hpf (0-5); UROBILINOGEN NORMAL (NORMAL); WHITE CELLS - URINE 0-5 /hpf (NEGATIVE)
== END | disposition home or self-care (01) ==
LOC: D.LABREF 20:58
DX: N39.0 Urinary tract infection, site not specified (principal)

== ENCOUNTER 2019-07-28 11:40 | Emergency (ER) | payer MEDICARE ==
[~2019-07-28] VITALS: Ht 182.9 cm; Wt 68.2 kg
[2019-07-28 11:56] VITALS: Ht 182.9 cm; Wt 68.2 kg
[2019-07-28 13:38] LABS: BASOPHILS 0.2 % (0-2); EOSINOPHILS 0.5 % (0-7); HEMATOCRIT 40.8 % (42.0-54.0); HEMOGLOBIN 13.4 g/dL (13.5-17.5); IMMATURE GRANULOCYTES 0.4 % (0-5); LYMPHOCYTES 15.9 % (15-50); MCH 27.3 pg (26.0-34.0); MCHC 32.8 g/dL (31.0-37.0); MCV 83.3 fL (80.0-100.0); MEAN PLATELET VOLUME 9.1 fL (7.4-10.4); MONOCYTES 6.9 % (2-11); NEUTROPHILS 76.1 % (40-80); RDW 15.4 % (11.5-14.5); WBC 12.7 10x3/uL (4.8-10.8)
[2019-07-28 13:55] LABS: PLATELET COUNT 567 10x3/uL (130-400)
[2019-07-28 13:56] LABS: CALC OSMOLALITY 272 mosm/kg (275-300); CALCIUM 8.9 mg/dL (8.5-10.1); CARBON DIOXIDE 29.1 mmol/L (21.0-32.0); CHLORIDE - SERUM 99 mmol/L (98-107); CREATININE - SERUM 0.6 mg/dL (0.6-1.3); GLUCOSE 88 mg/dL (74-106); POTASSIUM - SERUM 4.6 mmol/L (3.5-5.1); SODIUM 136 mmol/L (136-145); UREA NITROGEN 19 mg/dL (7-18); eGFR NON AFRICAN AMERICAN > 90 mL/min (90-120)
[2019-07-28 14:00] LABS: ALBUMIN 2.4 g/dL (3.4-5.0); ALKALINE PHOSPHATASE 236 U/L (46-116); ALT (SGPT) 56 U/L (10-68); BILIRUBIN - TOTAL 0.25 mg/dL (0.2-1.3); PROTEIN - SERUM 8.2 g/dL (6.4-8.2)
[2019-07-28 14:48] LABS: APPEARANCE CLEAR (CLEAR); COLOR YELLOW (YELLOW); GLUCOSE NEGATIVE (NEGATIVE); KETONE NEGATIVE (NEGATIVE); NITRITE NEGATIVE (NEGATIVE); PROTEIN NEGATIVE (NEGATIVE); UROBILINOGEN NORMAL (NORMAL)
[2019-07-28 14:49] LABS: BILIRUBIN NEGATIVE (NEGATIVE)
[2019-07-28 14:50] LABS: BACTERIA MODERATE /hpf (NEGATIVE); EPITHELIAL CELLS 0-5 /hpf (0-5); MUCUS <1+ /lpf (NONE SEEN); RED CELLS - URINE 0-5 /hpf (0-5)
[2019-07-28 14:52] LABS: UDS - AMPHET POSITIVE QUAL (NEGATIVE); UDS - BARB NEGATIVE QUAL (NEGATIVE); UDS - BENZO POSITIVE QUAL (NEGATIVE); UDS - COCAINE NEGATIVE QUAL (NEGATIVE); UDS - OPIATE POSITIVE QUAL (NEGATIVE); UDS - PCP NEGATIVE QUAL (NEGATIVE); UDS - THC POSITIVE QUAL (NEGATIVE)
[2019-07-28 15:40] VITALS: BP 116/89
== END 2019-07-28 16:35 | disposition home or self-care (01) ==
LOC: D.ER 11:40
PROVIDERS: Family Medicine
DX: R10.9 Unspecified abdominal pain (principal); K59.00 Constipation, unspecified; G82.20 Paraplegia, unspecified; L89.154 Pressure ulcer of sacral region, stage 4